=== PATIENT | female | born 1990 | race Caucasian/White ===

== ENCOUNTER 2017-02-11 15:13 | Emergency (ER) | payer SELFPAY ==
--- NOTE | 2017-02-11 17:14 | ER Document Report ---
ED Skin Rash/Insect Bite/Abscs - General Chief Complaint: Insect Bite Stated Complaint: BUG BITE Time Seen by Provider: 02/11/17 16:59 Mode of Arrival: Ambulatory Information source: Patient Notes: 26-year-old male female presents to ED for insect bite to the right middle and index finger last night. She states has been itching and swelling since then. TRAVEL OUTSIDE OF THE [place] IN LAST 30 DAYS: No - HPI Patient complains to provider of: Insect bite Onset: Yesterday Onset/Duration: Gradual Quality of pain: Pressure Severity: Moderate Pain Level: 3 Skin Character: Swelling, Other - Insect bite to the right middle and index finger Quality of rash: Itchy, Painful Identify cause: Yes Exacerbated by: Denies Relieved by: Denies Similar symptoms previously: Yes Recently seen / treated by doctor: No - Related Data Allergies/Adverse Reactions: strawberry [[place]] Allergy (Verified 02/11/17 15:27) Hives Past Medical History - General Information source: Patient - Social History Smoking Status: Former Smoker Cigarette use (# per day): No Chew tobacco use (# tins/day): No Smoking Education Provided: No Frequency of alcohol use: None Drug Abuse: None Occupation: mom Lives with: Family Family History: Arthritis, Malignancy. denies: CAD, COPD, CVA, DM, Hyperlipidemia, Hypertension, Thyroid Disfunction Patient has suicidal ideation: No Patient has homicidal ideation: No - Past Medical History Cardiac Medical History: Reports: None Pulmonary Medical History: Reports: None EENT Medical History: Reports: None Neurological Medical History: Reports: Hx Migraine Endocrine Medical History: Reports: None Renal/ Medical History: Reports: Hx Kidney Stones Malignancy Medical History: Reports: Hx Cervical Cancer - Atypical cells with a cone biopsy GI Medical History: Reports: None Musculoskeltal Medical History: Reports None Psychiatric Medical History: Reports: None Traumatic Medical History: Reports: None Infectious Medical History: Reports: None Past Surgical History: Reports: Hx Gynecologic Surgery - LEEP, cone biopsy, Hx Oral Surgery - wisdom teeth - Immunizations Immunizations up to date: Yes Hx Diphtheria, Pertussis, Tetanus Vaccination: Yes Hx Pneumococcal Vaccination: 06/28/09 Review of Systems - Review of Systems Constitutional: No symptoms reported EENT: No symptoms reported Cardiovascular: No symptoms reported Respiratory: No symptoms reported Gastrointestinal: No symptoms reported Genitourinary: No symptoms reported Female Genitourinary: No symptoms reported Musculoskeletal: No symptoms reported Skin: Other - Insect bite to index and middle finger with redness and swelling Hematologic/Lymphatic: No symptoms reported Neurological/Psychological: No symptoms reported Physical Exam - Vital signs Vitals: Temp Pulse Resp BP Pulse Ox 99.1 F 84 16 140/97 H 100 02/11/17 15:26 02/11/17 15:26 02/11/17 15:26 02/11/17 15:26 02/11/17 15:26 Interpretation: Normal - General General appearance: Appears well, Alert - HEENT Head: Normocephalic, Atraumatic Eyes: Normal Pupils: PERRL - Respiratory Respiratory status: No respiratory distress Chest status: Nontender Breath sounds: Normal Chest palpation: Normal - Cardiovascular Rhythm: Regular Heart sounds: Normal auscultation Murmur: No - Abdominal Inspection: Normal Distension: No distension Bowel sounds: Normal Tenderness: Nontender Organomegaly: No organomegaly - Back Back: Normal, Nontender - Extremities General upper extremity: Normal inspection, Nontender, Normal color, Normal ROM , Normal temperature General lower extremity: Normal inspection, Nontender, Normal color, Normal ROM , Normal temperature, Normal weight bearing. No: Juanpablo's sign - Neurological Neuro grossly intact: Yes Cognition: Normal Orientation: AAOx4 Oden Coma Scale Eye Opening: Spontaneous Sourav Coma Scale Verbal: Oriented Oden Coma Scale Motor: Obeys Commands Oden Coma Scale Total: 15 Speech: Normal Motor strength normal: LUE, RUE, LLE, RLE Sensory: Normal - Psychological Associated symptoms: Normal affect, Normal mood - Skin Skin Temperature: Warm Skin Moisture: Dry Skin Color: Normal Skin irregularity: Erythema Location of irregularity: Extremities - Right middle and index finger Irregularity with: Swelling, Tenderness Course - Vital Signs Vital signs: Temp Pulse Resp BP Pulse Ox 97.8 F 85 18 135/85 H 99 02/11/17 17:24 02/11/17 17:24 02/11/17 17:24 02/11/17 17:24 02/11/17 17:24 Discharge - Discharge Clinical Impression: Insect bite of finger with local reaction Qualifiers: Encounter type: initial encounter Qualified Code(s): S60.469A - Insect bite ( nonvenomous) of unspecified finger, initial encounter Condition: Stable Disposition: HOME, SELF-CARE Instructions: Family Physicians / Practices Additional Instructions: Insect Bites You have been bitten by an insect. These bites can cause two types of swelling: an initial swelling due to insect saliva or injected poison, and a late reaction due to your body's allergic reaction. This initial local reaction may be uncomfortable but is not dangerous. Often there's an itchy "hive" at the bite location. This is treated with antihistamines, cold compresses, and resting the affected body part. The later reaction often develops about the second day. The entire area becomes very swollen, red, itchy, and tender. This is an allergic reaction. Your body is attacking the leftover insect saliva or venom. This type of allergy is unpleasant, but not dangerous. We treat this swelling with cortisone -type medicine. Sometimes we use antibiotics if we're worried about infection. Antihistamines help with the itch. If you develop a fever, chills, a red streak, or swollen glands in the area of the bite, infection may be starting. Return at once. USE OF DIPHENHYDRAMINE: The use of diphenhydramine (Benadryl) has been recommended to control allergic symptoms. The 25 mg strength is available over- the-counter, as well as the elixir. This antihistamine is used for many symptoms. It's useful for itching, watering eyes and nose, allergic swelling, hives, and insect stings. The medication can be repeated four times daily. Age Elixir (12.5 mg/tsp) 25 mg pill 2-3 yr 1/2 tsp 4-8 yr 1 tsp 9-14 yr 2 tsp one tab adult 1-2 tabs Antihistamines may cause drowsiness, especially with the first dose. Do not operate machinery or drive while under the effects of the medication. Do not combine the medication with alcohol, or with any other medication without talking to your doctor. Ice Packs Apply ice packs frequently against the painful area. Many different schedules are recommended, such as "20 minutes on, 20 minutes off" or "one hour ice, two hours rest." If you need to work, you may need to go longer between ice treatments. You should plan to have the area ice packed AT LEAST one fourth of the time. The ice should be applied over the wrap, tape, or splint, or over a layer of cloth -- not directly against the skin. Some ice bags have a built-in cloth and can be put directly on the skin. FOLLOW-UP CARE: If you have been referred to a physician for follow-up care, call the physician s office for an appointment as you were instructed or within the next two days. If you experience worsening or a significant change in your symptoms, notify the physician immediately or return to the Emergency Department at any time for re-evaluation. Forms: Elevated Blood Pressure
[2017-02-11 17:25] VITALS: BP 135/85
== END 2017-02-11 17:25 | disposition home or self-care (01) ==
LOC: ER 15:13
DX: S60.462A Insect bite (nonvenomous) of right middle finger, initial encounter (principal); S60.460A Insect bite (nonvenomous) of right index finger, initial encounter; W57.XXXA Bitten or stung by nonvenomous insect and other nonvenomous arthropods, initial encounter; Z91.018 Allergy to other foods; Z87.891 Personal history of nicotine dependence
CPT/HCPCS: 99281

== ENCOUNTER 2017-02-13 14:23 | Emergency (ER) | payer SELFPAY ==
[2017-02-13 14:27] VITALS: BP 136/97
[2017-02-13] MEDS ORDERED: CEPHALEXIN 500 MG CAPSULE PO ONE (14:57)
[2017-02-13] MEDS ORDERED: SULFAMETHOXAZOLE/TRIMETHOPRIM 800-160 MG TABLET PO ONE (14:57)
--- NOTE | 2017-02-13 14:59 | ER Document Report ---
HPI - HPI Patient complains to provider of: skin rash Pain Level: 4 Context: Patient is a 26-year-old female who comes emergency department for chief complaint of spreading redness between her middle and ring fingers on her right hand, she states that 2 days ago she was bitten by an insect, she states it was initially just very itchy but now has started to become increasingly red and tender. She denies fever or chills, she is up-to-date on vaccinations, she denies any daily medications. - REPRODUCTIVE Reproductive: DENIES: : - DERM Skin Color: Normal Past Medical History - General Information source: Patient - Social History Smoking Status: Never Smoker Frequency of alcohol use: None Drug Abuse: None Lives with: Family Family History: Arthritis, Malignancy. denies: CAD, COPD, CVA, DM, Hyperlipidemia, Hypertension, Thyroid Disfunction Neurological Medical History: Reports: Hx Migraine Renal/ Medical History: Reports: Hx Kidney Stones. Denies: Hx Peritoneal Dialysis Malignancy Medical History: Reports: Hx Cervical Cancer - Atypical cells with a cone biopsy Past Surgical History: Reports: Hx Gynecologic Surgery - LEEP, cone biopsy, Hx Oral Surgery - wisdom teeth, Hx Orthopedic Surgery - wisdom - Immunizations Immunizations up to date: Yes Hx Diphtheria, Pertussis, Tetanus Vaccination: Yes Hx Pneumococcal Vaccination: 06/28/09 Vertical Provider Document - CONSTITUTIONAL General Appearance: WD/WN, No Apparent Distress - INFECTION CONTROL TRAVEL OUTSIDE OF THE [place] IN LAST 30 DAYS: No - HEENT HEENT: Atraumatic, Normal ENT Exam, Normocephalic - NECK Neck: Normal Inspection - RESPIRATORY Respiratory: Breath Sounds Normal, No Respiratory Distress O2 Sat by Pulse Oximetry: 100 - CARDIOVASCULAR Cardiovascular: Regular Rate, Regular Rhythm - GI/ABDOMEN Gastrointestinal: Abdomen Soft, Abdomen Non-Tender - MUSCULOSKELETAL/EXTREMETIES Musculoskeletal/Extremeties: Tender - There is erythema over the side of both the middle and ring fingers of the right hand, there is warmth to the area increased compared to the surrounding areas, no induration or fluctuance, no drainage. Area not noted to be tender with palpation. Range of motion of the fingers intact, normal sensation and capillary refill. - NEURO Level of Consciousness: Awake, Alert, Appropriate Course - Re-evaluation Re-evalutation: Examination indicates insect bite, but also consistent with spreading cellulitis. ROM intact, no induration or fluctuance, no prurulent drainage. Traced borders. Patient instructed to pay attention to the traced borders, instructed to return if she develops spreading redness, hardening of the area, fever, or any other indications of worsening symptoms. Patient states understanding and agreement. - Vital Signs Vital signs: Temp Pulse Resp BP Pulse Ox 98.6 F 81 14 136/97 H 100 02/13/17 14:24 02/13/17 14:24 02/13/17 14:24 02/13/17 14:24 02/13/17 14:24 Discharge - Discharge Clinical Impression: Insect bite Qualifiers: Encounter type: initial encounter Qualified Code(s): W57.XXXA - Bitten or stung by nonvenomous insect and other nonvenomous arthropods, initial encounter Condition: Stable Disposition: HOME, SELF-CARE Additional Instructions: Your examination indicates both localized inflammatory response as well as what appears to be developing cellulitis. Take the antibiotics as prescribed. Observe the area for any spreading, hardening, or other concerning symptoms. Return to emergency department for any concerning symptoms. I also recommend continuing the antihistamine treatments, also take Pepcid [id number] 20 mg once or twice a day. Prescriptions: Cephalexin Monohydrate [Keflex 500 mg Capsule] 500 mg PO QID #28 capsule Sulfamethoxazole/Trimethoprim [Bactrim Ds Tablet] 1 each PO BID #14 tablet
== END 2017-02-13 15:07 | disposition home or self-care (01) ==
LOC: ER 14:23
DX: S60.462A Insect bite (nonvenomous) of right middle finger, initial encounter (principal); S60.464A Insect bite (nonvenomous) of right ring finger, initial encounter; W57.XXXA Bitten or stung by nonvenomous insect and other nonvenomous arthropods, initial encounter
CPT/HCPCS: 99283

== ENCOUNTER 2017-03-24 00:52 | Emergency (ER) | payer SELFPAY ==
[2017-03-24] MEDS ORDERED: ACETAMINOPHEN 325 MG TABLET PO ONE (01:59)
[2017-03-24] MEDS ORDERED: KETOROLAC TROMETHAMINE INJ/PF 30 MG/1 ML SDV IV ONE (02:00)
--- NOTE | 2017-03-24 02:03 | ER Document Report ---
ED General - General Chief Complaint: Flu Symptoms Stated Complaint: FLU LIKE SYMPTOMS Time Seen by Provider: 03/24/17 01:54 Notes: Patient is a 26-year-old female presents with complaint of body aches, fevers, vomiting, dysuria or urinary frequency, sore throat, and coughing. She says symptoms have been ongoing for approximately 24 hours. She denies any sick contacts. She has not yet had a flu shot this year. She denies any neck stiffness. She says she does have some soreness and pain into her lower back bilaterally. No other complaints at this time. She did take Tylenol approximately 4 hours ago. Patient denies any abnormal vaginal discharge or bleeding. Only previous surgeries is cervical conization due to cervical dysplasia. She says that has not been done recently. No tick bites in the last 2 months. TRAVEL OUTSIDE OF THE [place] IN LAST 30 DAYS: No - Related Data Allergies/Adverse Reactions: strawberry [[place]] Allergy (Verified 02/11/17 15:27) Hives Home Medications: Current Home Medications No Home Medications 03/24/17 [History] Past Medical History - Social History Smoking Status: Unknown if Ever Smoked Frequency of alcohol use: None Drug Abuse: None Family History: Arthritis, Malignancy. denies: CAD, COPD, CVA, DM, Hyperlipidemia, Hypertension, Thyroid Disfunction Patient has suicidal ideation: No Patient has homicidal ideation: No Neurological Medical History: Reports: Hx Migraine Renal/ Medical History: Reports: Hx Kidney Stones. Denies: Hx Peritoneal Dialysis Malignancy Medical History: Reports: Hx Cervical Cancer - Atypical cells with a cone biopsy Past Surgical History: Reports: Hx Gynecologic Surgery - LEEP, cone biopsy, Hx Oral Surgery - wisdom teeth, Hx Orthopedic Surgery - wisdom - Immunizations Immunizations up to date: Yes Hx Diphtheria, Pertussis, Tetanus Vaccination: Yes Hx Pneumococcal Vaccination: 06/28/09 Review of Systems - Review of Systems Notes: My Normal Review Basic REVIEW OF SYSTEMS: CONSTITUTIONAL : Fever EENT: Throat CARDIOVASCULAR: Denies chest pain. RESPIRATORY: Cough GASTROINTESTINAL: Denies abdominal pain. Denies nausea, vomiting, or diarrhea. GENITOURINARY: Denies difficulty urinating, painful urination, burning, frequency, or blood in urine. MUSCULOSKELETAL: Low back pain SKIN: Denies rash or skin lesions. NEUROLOGICAL: Denies altered mental status or loss of consciousness. Denies headache. Denies weakness or paralysis or loss of use of either side. Denies problems with gait or speech. Denies sensory or motor loss. ALL OTHER SYSTEMS REVIEWED AND NEGATIVE. Physical Exam - Vital signs Vitals: Temp Pulse Resp BP Pulse Ox 102.4 F H 127 H 22 H 106/76 98 03/24/17 00:55 03/24/17 00:55 03/24/17 00:55 03/24/17 00:55 03/24/17 00:55 - Notes Notes: General Appearance: Well nourished, alert, cooperative, no acute distress, no obvious discomfort. Vitals: reviewed, See vital signs table. Head: no swelling or tenderness to the head Eyes: PERRL, EOMI, Conjuctiva clear Mouth: No decreasd moisture Throat: Erythema to the posterior pharynx. No tonsillar enlargement. No exudates. Neck: Supple, no neck tenderness, Lungs: No wheezing, No rales, No rhonci, No accessory muscle use, good air exchange bilaterally. Heart: Tachycardic rate, Regular rythm, No murmur, no rub Abdomen: Normal BS, soft, No rigidity, No abdominal tenderness, No guarding, no rebound, no abdominal masses, no organomegaly Back: Mild pain to palpation over bilateral costovertebral angles. Extremities: strength 5/5 in all extremities, good pulses in all extremities, no swelling or tenderness in the extremities, no edema. Skin: warm, dry, appropriate color, no rash Neuro: speech clear, oriented x 3, normal affect, responds appropriately to questions. Course - Re-evaluation Re-evalutation: 03/24/17 03:51 Patient's laboratory evaluation is really unremarkable. I really do suspect that she most likely has the flu even though her flu swabs are negative. Flu swab sensitivities not 100%. She says that she is feeling much improved however she still feels as if she has pain in her bones. She says that she aches all over and the pain is mainly feels as if it is in her bones itself. She denies a headache at this time. She has no neck stiffness. Clinically she looks much improved. Urinalysis negative. Chest x-ray does not show evidence of pneumonia. I will give the patient 1 more liter of fluids. Heart rate is currently in the 90s. We will then reassess her and see how she is doing. I will give her a small dose of morphine to help with her body aches. I did return to ask further questions. She denies any IV drug abuse. She denies any travel outside the country. 03/24/17 05:20 Patient is feeling improved. She looks well. Her initial vital signs did suggest Sirs criteria being that she had a fever and tachycardia. Those vital signs have completely normalized at this time. Her blood pressure has always remained stable. Her heart rate was in the 130s when she first arrived. Now that her fever is gone her heart rate is in the 90s. Her CBC shows that she does have a slight leukocytosis with neutrophilic predominance; however, she has no bandemia. Urinalysis negative. Chest x-ray is negative. She complains of sore throat and body aches which was cause concern for flu. Her flu swab is negative however I still suspect there is possibility she could have flu being that the flu swabs are not 100% sensitive. I informed her of this. I informed her that is still not 100% clear what initially caused a fever; however, she was have a very low threshold to return to the ER for reevaluation. Patient to return to the ER immediately if she has vomiting, recurrent fevers not responding to Tylenol Motrin, or she feels that she is worsening in any way. Regardless we will have her return to the ER or her primary care doctor in 2 days for reevaluation. Patient agrees with plan will be discharged home. Dictation of this chart was performed using voice recognition software; therefore, there may be some unintended grammatical errors. 03/24/17 05:22 - Vital Signs Vital signs: Temp Pulse Resp BP Pulse Ox 98.6 F 139 H 9 L 121/76 97 03/24/17 03:38 03/24/17 00:58 03/24/17 04:14 03/24/17 04:14 03/24/17 04:14 - Laboratory Result Diagrams: 03/24/17 02:14 03/24/17 02:14 Laboratory results interpreted by me: 03/24/17 03/24/17 02:14 02:14 WBC 12.2 H RDW 14.7 H Seg Neutrophils % 86.4 H Lymphocytes % 7.2 L Absolute Neutrophils 10.5 H Carbon Dioxide 21 L BUN 6 L Glucose 120 H AST 41 H Discharge - Discharge Clinical Impression: SIRS (systemic inflammatory response syndrome) Fever Qualifiers: Fever type: unspecified Qualified Code(s): R50.9 - Fever, unspecified Condition: Good Disposition: HOME, SELF-CARE Additional Instructions: Please drink clear liquids over the next 24 hours. Treat fevers with Tylenol and Motrin. Have a low threshold to return to the ER if you have worsening pain , recurrent fevers not responding to Tylenol, vomiting, or if you feel that you are worsening in any way. Please follow up with the ER or your doctor in 2 days for reevaluation. Forms: Return to Work
[2017-03-24] MEDS: NORMAL SALINE 1000 ML 1,000 ML IV PRN ×2 (02:14→02:18)
[2017-03-24] MEDS ORDERED: ONDANSETRON HCL INJ/PF 4 MG/2 ML SDV IV ONE (02:20)
[2017-03-24 02:27] LABS: ABSOLUTE LYMPHOCYTES (AUTO) 0.9 10^3/uL (0.5-4.7); ABSOLUTE MONOCYTES (AUTO) 0.7 10^3/uL (0.1-1.4); ABSOLUTE NEUT (AUTO) 10.5 10^3/uL (1.7-8.2); BASOPHILS % (AUTO) 0.3 % (0-2); EOSINOPHILS % (AUTO) 0.1 % (0-6); HEMATOCRIT 40.9 % (36.0-47.0); HEMOGLOBIN 14.1 g/dL (12.0-15.5); HGB HCT DIFFERENCE 1.4; LYMPHOCYTES % (AUTO) 7.2 % (13-45); MEAN CORPUSCULAR HEMOGLOBIN 28.9 pg (27.0-33.4); MEAN CORPUSCULAR HGB CONC 34.4 g/dL (32.0-36.0); MEAN CORPUSCULAR VOLUME 84 fl (80-97); RED BLOOD COUNT 4.87 10^6/uL (3.72-5.28); RED CELL DISTRIBUTION WIDTH 14.7 % (11.5-14.0); SEGMENTED NEUTROPHILS % (AUTO) 86.4 % (42-78); WHITE BLOOD COUNT 12.2 10^3/uL (4.0-10.5)
[2017-03-24 02:39] LABS: ALANINE AMINOTRANSFERASE 49 U/L (9-52); ALBUMIN 4.7 g/dL (3.5-5.0); ALKALINE PHOSPHATASE 100 U/L (38-126); ANION GAP 13 (5-19); ASPARTATE AMINO TRANSFERASE 41 U/L (14-36); BILIRUBIN,DIRECT 0.4 mg/dL (0.0-0.4); BILIRUBIN,TOTAL 0.7 mg/dL (0.2-1.3); BLOOD UREA NITROGEN 6 mg/dL (7-20); CARBON DIOXIDE 21 mmol/L (22-30); CHLORIDE 106 mmol/L (98-107); GLUCOSE 120 mg/dL (75-110); POTASSIUM 4.2 mmol/L (3.6-5.0); SODIUM 140.4 mmol/L (137-145)
[2017-03-24 03:43] LABS: APPEARANCE,URINE SLIGHTLY-CLOUDY; BILIRUBIN,URINE NEGATIVE (NEGATIVE); GLUCOSE, URINE NEGATIVE (NEGATIVE); KETONES,URINE NEGATIVE (NEGATIVE); LEUKOCYTE ESTERASE,URINE NEGATIVE (NEGATIVE); NITRITE,URINE NEGATIVE (NEGATIVE); PROTEIN,URINE NEGATIVE (NEGATIVE); URINE SPECIFIC GRAVITY 1.003; UROBILINOGEN,URINE NEGATIVE mg/dL (<2.0)
[2017-03-24] MEDS ORDERED: NORMAL SALINE 1000 ML 1,000 ML IV ONE (03:51)
[2017-03-24] MEDS ORDERED: MORPHINE SULFATE 10 MG/ML INJ IV ONE (03:51)
--- NOTE | 2017-03-24 03:52 | RADIOLOGY REPORT (SQ) ---
EXAM DESCRIPTION: CHEST PA/LAT COMPLETED DATE/TIME: 03/24/2017 3:39 am REASON FOR STUDY: fever COMPARISON: 05/10/2011. EXAM PARAMETERS: NUMBER OF VIEWS: two views TECHNIQUE: Digital Frontal and Lateral radiographic views of the chest acquired. RADIATION DOSE: NA LIMITATIONS: none FINDINGS: LUNGS AND PLEURA: No opacities, masses or pneumothorax. No pleural effusion. Azygos lobe. MEDIASTINUM AND HILAR STRUCTURES: No masses or contour abnormalities. HEART AND VASCULAR STRUCTURES: Heart normal size. No evidence for failure. BONES: No acute findings. HARDWARE: None in the chest. OTHER: No other significant finding. IMPRESSION: NO SIGNIFICANT RADIOGRAPHIC FINDING IN THE CHEST. TECHNICAL DOCUMENTATION: JOB ID: [id number] [employer]- All Rights Reserved
[2017-03-24 05:37] VITALS: BP 115/66
== END 2017-03-24 05:36 | disposition home or self-care (01) ==
LOC: ER 00:52
DX: R65.10 Systemic inflammatory response syndrome (SIRS) of non-infectious origin without acute organ dysfunction (principal); R50.9 Fever, unspecified; R05 Cough; M54.5 Low back pain; J02.9 Acute pharyngitis, unspecified; R00.0 Tachycardia, unspecified; M89.8X9 Other specified disorders of bone, unspecified site; D72.828 Other elevated white blood cell count; Z91.018 Allergy to other foods
CPT/HCPCS: 99284; 96361; 96374; 96375; 36415; 84703; 85025; 80053; 81001; 87804; 71020; J1885; J2270; J2405; J7030

== ENCOUNTER 2017-03-26 19:11 | Emergency (ER) | payer SELFPAY ==
[2017-03-26 19:47] VITALS: BP 121/93
== END 2017-03-26 22:20 | disposition left against medical advice (07) ==
LOC: ER 19:11
DX: Z53.21 Procedure and treatment not carried out due to patient leaving prior to being seen by health care provider (principal)

== ENCOUNTER 2017-08-07 13:44 | Emergency (ER) | payer SELFPAY ==
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
--- NOTE | 2017-08-07 15:31 | RADIOLOGY REPORT (SQ) ---
EXAM DESCRIPTION: U/S OB TRANSVAG W/DOPPLER COMPLETED DATE/TIME: 08/07/2017 3:20 pm REASON FOR STUDY: abd cramping in COMPARISON: None. TECHNIQUE: Transvaginal static and realtime grayscale images acquired of the pelvis. Additional micky cted spectral and color Doppler images recorded. All images stored on PACs. bHCG: Not drawn. LIMITATIONS: None. FINDINGS: UTERUS: No masses. Subchorionic bleed measuring 1.1 x 1.7 cm. GESTATIONAL SAC: Yes, corresponding to a 5 week 5 day gestation. YOLK SAC: Yes. POLE: No. RIGHT ADNEXA: Normal ovary with normal vascular flow. No adnexal free fluid. No adnexal masses. LEFT ADNEXA: Normal ovary with normal vascular flow. No adnexal free fluid. 1.6 cm cyst. FREE FLUID: None. OTHER: No other significant finding. IMPRESSION: POSSIBLE EARLY INTRAUTERINE . GESTATIONAL SAC WITH YOLK SAC BUT NO POLE. SUBCHORIONIC BLEED PRESENT. RECOMMEND FOLLOW-UP IN A FEW DAYS TO CONFIRM NORMAL DEVELOPMENT. Trimester of : First - 0 to 13 weeks. TECHNICAL DOCUMENTATION: JOB ID: [id number]- All Rights Reserved
[2017-08-07 16:01] LABS: APPEARANCE,URINE SLIGHTLY-CLOUDY; BILIRUBIN,URINE NEGATIVE (NEGATIVE); COLOR,URINE YELLOW; GLUCOSE, URINE NEGATIVE (NEGATIVE); KETONES,URINE NEGATIVE (NEGATIVE); LEUKOCYTE ESTERASE,URINE SMALL (NEGATIVE); NITRITE,URINE NEGATIVE (NEGATIVE); PROTEIN,URINE NEGATIVE (NEGATIVE); URINE SPECIFIC GRAVITY 1.006; UROBILINOGEN,URINE NEGATIVE mg/dL (<2.0)
[2017-08-07 17:38] LABS: ABSOLUTE LYMPHOCYTES (AUTO) 1.7 10^3/uL (0.5-4.7); ABSOLUTE MONOCYTES (AUTO) 0.3 10^3/uL (0.1-1.4); ABSOLUTE NEUT (AUTO) 6.4 10^3/uL (1.7-8.2); BASOPHILS % (AUTO) 0.6 % (0-2); EOSINOPHILS % (AUTO) 0.2 % (0-6); HEMATOCRIT 40.3 % (36.0-47.0); HEMOGLOBIN 13.5 g/dL (12.0-15.5); MEAN CORPUSCULAR HEMOGLOBIN 28.6 pg (27.0-33.4); MEAN CORPUSCULAR HGB CONC 33.6 g/dL (32.0-36.0); MEAN CORPUSCULAR VOLUME 85 fl (80-97); MONOCYTES % (AUTO) 3.9 % (3-13); PLATELET COUNT 209 10^3/uL (150-450); RED BLOOD COUNT 4.72 10^6/uL (3.72-5.28); RED CELL DISTRIBUTION WIDTH 14.7 % (11.5-14.0); SEGMENTED NEUTROPHILS % (AUTO) 75.3 % (42-78); TOTAL CELLS COUNTED % (AUTO) 100 %; WHITE BLOOD COUNT 8.5 10^3/uL (4.0-10.5)
[2017-08-07 18:00] LABS: ALANINE AMINOTRANSFERASE 24 U/L (9-52); ALBUMIN 4.3 g/dL (3.5-5.0); ALKALINE PHOSPHATASE 57 U/L (38-126); ANION GAP 11 (5-19); ASPARTATE AMINO TRANSFERASE 15 U/L (14-36); BILIRUBIN,DIRECT 0.1 mg/dL (0.0-0.4); BILIRUBIN,TOTAL 0.1 mg/dL (0.2-1.3); BLOOD UREA NITROGEN 7 mg/dL (7-20); CALCIUM 9.6 mg/dL (8.4-10.2); CARBON DIOXIDE 23 mmol/L (22-30); CHLORIDE 107 mmol/L (98-107); GLUCOSE 75 mg/dL (75-110); POTASSIUM 3.8 mmol/L (3.6-5.0); SODIUM 140.7 mmol/L (137-145); TOTAL PROTEIN 6.7 g/dL (6.3-8.2)
[2017-08-07 18:28] VITALS: BP 117/72
--- NOTE | 2017-08-07 18:53 | ER Document Report ---
ED General - General Mode of Arrival: Medic Information source: Patient TRAVEL OUTSIDE OF THE [place] IN LAST 30 DAYS: No <MARCO ANTONIO LANTIGUA - Last Filed: 08/07/17 18:57> - HPI Severity: Moderate <CRISTIHAN COOPER - Last Filed: 08/08/17 00:26> - General Chief Complaint: Abdominal Cramping Stated Complaint: ABDOMINAL PAIN Time Seen by Provider: 08/07/17 14:36 Notes: Patient is a 26 year old female who is approximately 6 weeks presents to the emergency department complaining of abdominal cramps and lower back pain onset prior to arrival. Patient has a history of previa and gestational diabetes. Patient is currently . (MARCO ANTONIO LANTIGUA) - Related Data Allergies/Adverse Reactions: strawberry [[place]] Allergy (Verified 08/07/17 13:44) Hives Past Medical History - General Information source: Patient - Social History Smoking Status: Former Smoker Chew tobacco use (# tins/day): No Frequency of alcohol use: None Drug Abuse: None Family History: Arthritis, Malignancy Patient has suicidal ideation: No Patient has homicidal ideation: No Neurological Medical History: Reports: Hx Migraine Renal/ Medical History: Reports: Hx Kidney Stones Malignancy Medical History: Reports: Hx Cervical Cancer - Atypical cells with a cone biopsy Past Surgical History: Reports: Hx Gynecologic Surgery - LEEP, cone biopsy, Hx Oral Surgery - wisdom teeth, Hx Orthopedic Surgery - wisdom - Immunizations Immunizations up to date: Yes Hx Diphtheria, Pertussis, Tetanus Vaccination: Yes Hx Pneumococcal Vaccination: 06/28/09 <MARCO ANTONIO LANTIGUA - Last Filed: 08/07/17 18:57> Review of Systems - Review of Systems Constitutional: No symptoms reported EENT: No symptoms reported Cardiovascular: No symptoms reported Respiratory: No symptoms reported Gastrointestinal: See HPI Genitourinary: No symptoms reported Female Genitourinary: No symptoms reported Musculoskeletal: See HPI, Back pain Skin: No symptoms reported Hematologic/Lymphatic: No symptoms reported Neurological/Psychological: No symptoms reported -: Yes All other systems reviewed and negative <MARCO ANTONIO LANTIGUA - Last Filed: 08/07/17 18:57> - Review of Systems Female Genitourinary: See HPI. denies: No symptoms reported <CRISTHIAN COOPER - Last Filed: 08/08/17 00:26> Physical Exam <MARCO ANTONIO LANTIGUA - Last Filed: 08/07/17 18:57> <CRISTHIAN COOPER - Last Filed: 08/08/17 00:26> - Vital signs Vitals: Temp Pulse Resp BP Pulse Ox 99.1 F 100 16 113/79 98 08/07/17 13:49 08/07/17 13:49 08/07/17 13:49 08/07/17 13:49 08/07/17 13:49 - Notes Notes: GENERAL: Alert, interacts well. No acute distress. HEAD: Normocephalic, atraumatic. EYES: Pupils equal, round, and reactive to light. Extraocular movements intact. ENT: Oral mucosa moist, tongue midline. NECK: Full range of motion. Supple. Trachea midline. LUNGS: Clear to auscultation bilaterally, no wheezes, rales, or rhonchi. No respiratory distress. HEART: Regular rate and rhythm. No murmurs, gallops, or rubs. ABDOMEN: Soft, suprapubic and LLQ tenderness to palpation. Non-distended. Bowel sounds present in all 4 quadrants. EXTREMITIES: Moves all 4 extremities spontaneously. NEUROLOGICAL: Alert and oriented x3. Normal speech. PSYCH: Normal affect, normal mood. SKIN: Warm, dry, normal turgor. No rashes or lesions noted. (MARCO ANTONIO LANTIGUA) Course - Laboratory Result Diagrams: 08/07/17 17:25 08/07/17 17:25 <MARCO ANTONIO LANTIGUA - Last Filed: 08/07/17 18:57> - Laboratory Result Diagrams: 08/07/17 17:25 08/07/17 17:25 <CRISTHIAN COOPER - Last Filed: 08/08/17 00:26> - Re-evaluation Re-evalutation: 08/07/17 19:01 CBC unremarkable, CMP unremarkable, quantitative hCG is 12,008, patient has small leukocyte esterase, 6 squamous epithelial cells, only 4 WBCs, no dysuria. Doubt infection suspect contamination. This will be sent for culture. Transvaginal ultrasound shows gestational sac and subchorionic hemorrhage. Discussed with patient that she is on complete vaginal rest until she follows up with OB. Discussed the somewhat increased risk of miscarriage. Patient is listed in the computer as being a positive, no indication for RhoGam. Patient will be discharged to home. Patient does have some nausea, she will be treated with Phenergan and Reglan. (CRISTHIAN COOPER) - Vital Signs Vital signs: Temp Pulse Resp BP Pulse Ox 98.5 F 83 18 117/72 98 08/07/17 18:24 08/07/17 18:24 08/07/17 18:24 08/07/17 18:24 08/07/17 18:24 - Laboratory Laboratory results interpreted by me: 08/07/17 08/07/17 08/07/17 15:22 17:25 17:25 RDW 14.7 H Total Bilirubin 0.1 L Beta HCG, Quant 47999.00 H Ur Leukocyte Esterase SMALL H Discharge <MARCO ANTONIO LANTIGUA - Last Filed: 08/07/17 18:57> <CRISTHIAN COOPER - Last Filed: 08/08/17 00:26> - Discharge Clinical Impression: Nausea and vomiting during prior to 22 weeks gestation Subchorionic hemorrhage in first trimester Qualifiers: Fetus number: single or unspecified fetus Qualified Code(s): O41.8X10 - Other specified disorders of amniotic fluid and membranes, first trimester, not applicable or unspecified Condition: Stable Disposition: HOME, SELF-CARE Additional Instructions: You have a small amount of bleeding around the baby. The skull subchorionic hemorrhage. It slightly increases your risk of miscarriage. Please do not have sex or put anything in your vagina until you follow-up with [facility]. You may notice a small amount of pink vaginal bleeding. Please return for large bright red vaginal bleeding or severely worsening pain. I have prescribed Phenergan and Reglan for your nausea. Do not take these at the same time. Take either one or the other. The ultrasound today showed a gestational sac but we did not see the baby. You should have the ultrasound repeated in 1-2 weeks to ensure that the is developing normally. Prescriptions: Promethazine HCl [Phenergan 25 mg Tablet] 25 mg PO Q4HP PRN #14 tablet PRN Reason: Metoclopramide HCl [Reglan 10 mg Tablet] 10 mg PO QIDP PRN #30 tablet PRN Reason: Referrals: ALESSANDRA DALEY MD [Primary Care Provider] - Follow up as needed Scribe Attestation: 08/08/17 00:26 I personally performed the services described in the documentation, reviewed and edited the documentation which was dictated to the scribe in my presence, and it accurately records my words and actions. (CRISTHIAN COOPER) Scribe Documentation - Scribe Written by Luther:: Luther Florez, 08/07/2017 19:00 acting as scribe for :: Bg <MARCO ANTONIO LANTIGUA - Last Filed: 08/07/17 18:57>
== END 2017-08-07 19:11 | disposition home or self-care (01) ==
LOC: ER 13:44
DX: O41.8X10 Other specified disorders of amniotic fluid and membranes, first trimester, not applicable or unspecified (principal); R10.9 Unspecified abdominal pain; O21.9 Vomiting of pregnancy, unspecified; Z3A.01 Less than 8 weeks gestation of pregnancy
CPT/HCPCS: 36415; 76817; 80053; 81001; 84702; 85025; 87086; 93976; 99284

== ENCOUNTER 2017-08-12 08:13 | Emergency (ER) | payer SELFPAY ==
[2017-08-12] MEDS ORDERED: NORMAL SALINE 1000 ML 1,000 ML IV ONE (08:36)
[2017-08-12] MEDS ORDERED: METOCLOPRAMIDE HCL INJ/PF 10 MG/2 ML SDV IV ONE (08:38)
[2017-08-12] MEDS ORDERED: DIPHENHYDRAMINE HCL 50 MG/ML VIAL IV ONE (08:53)
[2017-08-12 09:38] LABS: ABSOLUTE LYMPHOCYTES (AUTO) 0.9 10^3/uL (0.5-4.7); ABSOLUTE MONOCYTES (AUTO) 0.3 10^3/uL (0.1-1.4); ABSOLUTE NEUT (AUTO) 3.7 10^3/uL (1.7-8.2); BASOPHILS % (AUTO) 0.7 % (0-2); EOSINOPHILS % (AUTO) 0.3 % (0-6); HEMOGLOBIN 13.1 g/dL (12.0-15.5); LYMPHOCYTES % (AUTO) 18.8 % (13-45); MEAN CORPUSCULAR HEMOGLOBIN 28.8 pg (27.0-33.4); MEAN CORPUSCULAR HGB CONC 33.7 g/dL (32.0-36.0); MEAN CORPUSCULAR VOLUME 85 fl (80-97); MONOCYTES % (AUTO) 5.5 % (3-13); PLATELET COUNT 189 10^3/uL (150-450); RED BLOOD COUNT 4.56 10^6/uL (3.72-5.28); RED CELL DISTRIBUTION WIDTH 14.8 % (11.5-14.0); SEGMENTED NEUTROPHILS % (AUTO) 74.7 % (42-78); TOTAL CELLS COUNTED % (AUTO) 100 %
[2017-08-12 09:43] LABS: APPEARANCE,URINE SLIGHTLY-CLOUDY; BILIRUBIN,URINE NEGATIVE (NEGATIVE); COLOR,URINE YELLOW; GLUCOSE, URINE NEGATIVE (NEGATIVE); KETONES,URINE NEGATIVE (NEGATIVE); LEUKOCYTE ESTERASE,URINE NEGATIVE (NEGATIVE); NITRITE,URINE NEGATIVE (NEGATIVE); PROTEIN,URINE 30 mg/dL (NEGATIVE); URINE SPECIFIC GRAVITY 1.023
[2017-08-12 09:56] LABS: ALANINE AMINOTRANSFERASE 27 U/L (9-52); ALBUMIN 4.3 g/dL (3.5-5.0); ALKALINE PHOSPHATASE 57 U/L (38-126); ANION GAP 11 (5-19); ASPARTATE AMINO TRANSFERASE 19 U/L (14-36); BILIRUBIN,DIRECT 0.1 mg/dL (0.0-0.4); BILIRUBIN,TOTAL 0.2 mg/dL (0.2-1.3); BLOOD UREA NITROGEN 7 mg/dL (7-20); CALCIUM 9.5 mg/dL (8.4-10.2); CARBON DIOXIDE 22 mmol/L (22-30); CHLORIDE 107 mmol/L (98-107); GLUCOSE 96 mg/dL (75-110); LIPASE 94.6 U/L (23-300); POTASSIUM 4.1 mmol/L (3.6-5.0); SODIUM 140.3 mmol/L (137-145); TOTAL PROTEIN 6.6 g/dL (6.3-8.2)
--- NOTE | 2017-08-12 10:12 | ER Document Report ---
ED General - General Chief Complaint: Nausea/Vomiting Stated Complaint: VOMITING Time Seen by Provider: 08/12/17 08:35 TRAVEL OUTSIDE OF THE [place] IN LAST 30 DAYS: No - HPI Patient complains to provider of: Nausea vomiting diarrhea Notes: Patient coming in for evaluation nausea vomiting diarrhea. Patient currently is 7 weeks . Patient is a . Patient denies any abdominal pain or cramping denies any vaginal bleeding or vaginal discharge. Patient states she has tried Phenergan at home with no relief. Patient denies any other sick contacts except for being in the ER approximately 1 week ago. Patient resting comfortably upon my evaluation. - Related Data Allergies/Adverse Reactions: strawberry [[place]] Allergy (Verified 08/07/17 13:44) Hives Past Medical History - Social History Smoking Status: Unknown if Ever Smoked Family History: Arthritis, Malignancy Patient has suicidal ideation: No Patient has homicidal ideation: No Neurological Medical History: Reports: Hx Migraine Renal/ Medical History: Reports: Hx Kidney Stones. Denies: Hx Peritoneal Dialysis Malignancy Medical History: Reports: Hx Cervical Cancer - Atypical cells with a cone biopsy Past Surgical History: Reports: Hx Gynecologic Surgery - LEEP, cone biopsy, Hx Oral Surgery - wisdom teeth, Hx Orthopedic Surgery - wisdom - Immunizations Immunizations up to date: Yes Hx Diphtheria, Pertussis, Tetanus Vaccination: Yes Hx Pneumococcal Vaccination: 06/28/09 Review of Systems - Review of Systems Constitutional: No symptoms reported EENT: No symptoms reported Cardiovascular: No symptoms reported Respiratory: No symptoms reported Gastrointestinal: Diarrhea, Nausea, Vomiting Genitourinary: No symptoms reported Female Genitourinary: No symptoms reported Musculoskeletal: No symptoms reported Skin: No symptoms reported Hematologic/Lymphatic: No symptoms reported Neurological/Psychological: No symptoms reported -: Yes All other systems reviewed and negative Physical Exam - Vital signs Vitals: Temp Pulse Resp BP Pulse Ox 98.2 F 85 20 115/76 98 08/12/17 08:18 08/12/17 08:18 08/12/17 08:18 08/12/17 08:18 08/12/17 08:18 Interpretation: Normal - General General appearance: Appears well, Alert - HEENT Head: Normocephalic, Atraumatic Eyes: Normal Pupils: PERRL - Respiratory Respiratory status: No respiratory distress Chest status: Nontender Breath sounds: Normal Chest palpation: Normal - Cardiovascular Rhythm: Regular Heart sounds: Normal auscultation Murmur: No - Abdominal Inspection: Normal Distension: No distension Bowel sounds: Normal Tenderness: Nontender Organomegaly: No organomegaly - Back Back: Normal, Nontender - Extremities General upper extremity: Normal inspection, Nontender, Normal color, Normal ROM , Normal temperature General lower extremity: Normal inspection, Nontender, Normal color, Normal ROM , Normal temperature, Normal weight bearing. No: Juanpablo's sign - Neurological Neuro grossly intact: Yes Cognition: Normal Orientation: AAOx4 Sourav Coma Scale Eye Opening: Spontaneous Sourav Coma Scale Verbal: Oriented Sourav Coma Scale Motor: Obeys Commands Sourav Coma Scale Total: 15 Speech: Normal Motor strength normal: LUE, RUE, LLE, RLE Sensory: Normal - Psychological Associated symptoms: Normal affect, Normal mood - Skin Skin Temperature: Warm Skin Moisture: Dry Skin Color: Normal Course - Re-evaluation Re-evalutation: 08/12/17 11:10 The patient presents with n/v without signs of peritonitis or other life- threatening or serious etiology. The patient appears stable for discharge and has been instructed to return immediately if the symptoms worsen in any way, or in 8-12hr if not improved for re-evaluation. The patient has been instructed to return if the symptoms worsen or change in any way. - Vital Signs Vital signs: Temp Pulse Resp BP Pulse Ox 98.2 F 85 20 115/76 98 08/12/17 08:18 08/12/17 08:18 08/12/17 08:18 08/12/17 08:18 08/12/17 08:18 - Laboratory Result Diagrams: 08/12/17 09:10 08/12/17 09:10 Laboratory results interpreted by me: 08/12/17 08/12/17 08/12/17 09:10 09:10 09:10 RDW 14.8 H Beta HCG, Quant 00408.00 H Urine Protein 30 H Urine Urobilinogen 2.0 H Discharge - Discharge Clinical Impression: Nausea and vomiting during prior to 22 weeks gestation Condition: Good Disposition: HOME, SELF-CARE Instructions: Vomiting ([facility]), ([facility]) Additional Instructions: For nausea and vomiting during I recomment: Start with 10-12.5 mg of pyridoxine (vitamin B6) three times a day for 2 days. If not fully effective, Increase to 12.5 mg of pyridoxine four times a day for 2 days. If not fully effective, Increase to 25 mg of pyridoxine three times a day for 2 days. If not fully effective, Continue 25 mg pyridoxine 3 times a day, and add 12.5 mg of doxylamine before bedtime each day for 2 days. If not fully effective, Continue 25 mg pyridoxine 3 times a day, and take 12.5 mg of doxylamine twice a day. If not fully effective, Continue 25 mg pyridoxine 3 times a day, and take 12.5 mg of doxylamine three times a day. If not fully effective, Continue 25 mg pyridoxine 3 times a day, and 12.5 mg of doxylamine 3 times a day , while adding Emetrol, one to two tablespoons (15-30 cc) taken once or twice a day as needed. (Emetrol is an uyxp-gyc-iyuaigv mixture of sugar syrups and phosphoric acid [phosphorylated carbohydrate solution]) that acts by soothing the actual wall of the gastrointestinal tract). If not fully effective, Consult with your doctor. May also take the Reglan as prescribed. Follow-up with your primary care physician or CREDIT CHARGE AUTHORIZER return to the ER symptoms worsen. Prescriptions: Metoclopramide HCl [Reglan] 5 mg PO Q6 #30 tablet Prenat 115/Iron Fum/Folic/Dss [ 19 Tablet] 1 each PO DAILY #30 tablet Forms: Return to Work
[2017-08-12 11:19] VITALS: BP 110/65
== END 2017-08-12 11:19 | disposition home or self-care (01) ==
LOC: ER 08:13
DX: O21.9 Vomiting of pregnancy, unspecified (principal); O26.891 Other specified pregnancy related conditions, first trimester; R19.7 Diarrhea, unspecified; Z3A.01 Less than 8 weeks gestation of pregnancy
CPT/HCPCS: 99284; 96361; 96374; 96375; 36415; 84702; 83690; 85025; 80053; 81001; J1200; J2765; J7030

== ENCOUNTER → 2017-08-17 | Outpatient (CLI) | payer SELFPAY ==
--- NOTE | 2017-08-17 15:39 | RADIOLOGY REPORT (SQ) ---
EXAM DESCRIPTION: U/S [id number] TRNABD 1GES W/ODOP COMPLETED DATE/TIME: 08/17/2017 2:59 pm REASON FOR STUDY: ENCTR FOR SUPERVISION OF OTHER NORMAL , 1ST TRIMESTER (Z34.81) Z34.81 EN COUNTER FOR SUPRVSN OF NORMAL , FIRST TRIM COMPARISON: None. TECHNIQUE: Transabdominal static and realtime grayscale images acquired of the pelvis. Additional se lected spectral and color Doppler images recorded. All images stored on PACs. bHCG: Not applicable. LIMITATIONS: None. FINDINGS: FETUS: Living intrauterine . EGA: 6 weeks 4 days TARA: 04/08/2018 FHR: 131 beats per minute. SUBCHORIONIC BLEED: No no SIZE OF BLEED: Not applicable. UTERUS: No masses. No anomalies. CERVICAL LENGTH: 3.1 cm Closed. RIGHT ADNEXA: Normal ovary with normal vascular flow. No adnexal free fluid. 2.4 cm corpus luteum. It LEFT ADNEXA: Ovary not identified. No adnexal free fluid. No adnexal masses. FREE FLUID: None. OTHER: No other significant finding. IMPRESSION: LIVING INTRAUTERINE . EGA 6 weeks 4 days Trimester of : First - 0 to 13 weeks. TECHNICAL DOCUMENTATION: JOB ID: [id number] [employer]- All Rights Reserved
== END ==
LOC: RAD 12:50
PROVIDERS: ATTEND Nurse Practitioner Women's Health
DX: Z34.81 Encounter for supervision of other normal pregnancy, first trimester (principal)
CPT/HCPCS: 76801

== ENCOUNTER 2017-08-23 13:45 | Emergency (ER) | payer MEDICAID ==
[2017-08-23] MEDS ORDERED: ACETAMINOPHEN 325 MG TABLET PO ONE (14:27)
--- NOTE | 2017-08-23 14:31 | ER Document Report ---
HPI - HPI Patient complains to provider of: pelvic pain Onset: Yesterday Onset/Duration: Gradual Quality of pain: Cramping Pain Level: 3 Context: Patient is currently 7 weeks and complains of lower pelvic pain that started yesterday. Patient does report nausea and vomiting 6 episodes today. Patient does acknowledge that she has had vomiting throughout the thus far. Patient additionally complains of vaginal discharge. Patient is followed by the health department and has had an ultrasound although has not had any kind of STD testing. Patient denies any urinary symptoms. Associated Symptoms: Other - Pelvic pain, vaginal discharge. denies: Fever Exacerbated by: Denies Relieved by: Denies Similar symptoms previously: No Recently seen / treated by doctor: No - ROS ROS below otherwise negative: Yes Systems Reviewed and Negative: Yes All other systems reviewed and negative - CONSTITUTIONAL Constitutional: DENIES: Fever, Chills - CARDIOVASCULAR Cardiovascular: DENIES: Chest pain - RESPIRATORY Respiratory: DENIES: Trouble Breathing, Coughing - GASTROINTESTINAL Gastrointestinal: REPORTS: Abdominal Pain, Nausea, Patient vomiting. DENIES: Diarrhea - URINARY Urinary: DENIES: Dysuria - REPRODUCTIVE Reproductive: DENIES: : - MUSCULOSKELETAL Musculoskeletal: DENIES: Extremity pain, Back Pain - DERM Skin Color: Normal, [place] Skin Problems: None Past Medical History - General Information source: Patient - Social History Smoking Status: Former Smoker Chew tobacco use (# tins/day): No Frequency of alcohol use: None Drug Abuse: None Occupation: none Lives with: Family Family History: Arthritis, Malignancy Patient has suicidal ideation: No Patient has homicidal ideation: No Neurological Medical History: Reports: Hx Migraine Renal/ Medical History: Reports: Hx Kidney Stones. Denies: Hx Peritoneal Dialysis Malignancy Medical History: Reports: Hx Cervical Cancer - Atypical cells with a cone biopsy Past Surgical History: Reports: Hx Gynecologic Surgery - LEEP, cone biopsy, Hx Oral Surgery - wisdom teeth, Hx Orthopedic Surgery - wisdom - Immunizations Immunizations up to date: Yes Hx Diphtheria, Pertussis, Tetanus Vaccination: Yes Hx Pneumococcal Vaccination: 06/28/09 Vertical Provider Document - CONSTITUTIONAL Agree With Documented VS: Yes Exam Limitations: No Limitations General Appearance: WD/WN, No Apparent Distress - INFECTION CONTROL TRAVEL OUTSIDE OF THE [place] IN LAST 30 DAYS: No - HEENT HEENT: Atraumatic, Normocephalic - NECK Neck: Normal Inspection, Supple - RESPIRATORY Respiratory: Breath Sounds Normal, No Respiratory Distress O2 Sat by Pulse Oximetry: 100 - CARDIOVASCULAR Cardiovascular: Regular Rate, Regular Rhythm, No Murmur - GI/ABDOMEN Gastrointestinal: Abdomen Soft, Abdomen Tender - Suprapubic, left lower pelvic tenderness, No Organomegaly, Normal Bowel Sounds - REPRODUCTIVE Female Genitalia: Adnexal Pain-Right, Adnexal Pain-Left Notes: small amount of white vaginal discharge - BACK Back: Normal Inspection. negative: CVA Tenderness-Right, CVA Tenderness-Left - MUSCULOSKELETAL/EXTREMETIES Musculoskeletal/Extremeties: ALEKSANDAR WATTS - NEURO Level of Consciousness: Awake, Alert, Appropriate Motor/Sensory: No Motor Deficit - DERM Integumentary: Warm, Dry, No Rash Course - Re-evaluation Re-evalutation: 08/23/17 Patient presents with abdominal pain without signs of peritonitis or other life- threatening or serious etiology. Patient appears stable for discharge and has been instructed to return immediately if the symptoms worsen in any way, or in 8 -12 hours if not improved for reevaluation. The patient has been instructed to return if the symptoms worsen or change in any way. - Vital Signs Vital signs: Temp Pulse Resp BP Pulse Ox 99.1 F 91 16 130/74 H 100 08/23/17 13:49 08/23/17 13:49 08/23/17 13:49 08/23/17 13:49 08/23/17 13:49 - Laboratory Laboratory results interpreted by me: 08/23/17 17:50 Labs- Entire Visit 08/23/17 08/23/17 08/23/17 14:15 15:09 15:09 Urine Color YELLOW Urine Appearance SLIGHTLY-CLOUDY Urine pH 7.0 Ur Specific [place] 1.014 Urine Protein NEGATIVE Urine Glucose (UA) NEGATIVE Urine Ketones NEGATIVE Urine Blood NEGATIVE Urine Nitrite NEGATIVE Urine Bilirubin NEGATIVE Urine Urobilinogen NEGATIVE Ur Leukocyte Esterase NEGATIVE Urine WBC (Auto) 0 Urine RBC (Auto) 1 Urine Bacteria (Auto) TRACE Squamous Epi Cells Auto 2 Urine Mucus (Auto) MOD Urine Ascorbic Acid 40 H Epi Cells (Wet Prep) 3+ EPITHELIALS SEEN Bacteria (Wet Prep) 3+ BACTERIA SEEN Trichomonas (Wet Prep) NO TRICHOMONAS SEEN Vaginal WBC 4+ WBCS SEEN Vaginal RBC NO RBCS SEEN Vaginal Yeast NO YEAST SEEN Chlamydia DNA (PCR) NOT DETECTED N.gonorrhoeae DNA (PCR) NOT DETECTED - Diagnostic Test Radiology reviewed: Reports reviewed Discharge - Discharge Clinical Impression: Bacterial vaginosis Pelvic pain affecting Qualifiers: Trimester: first trimester Qualified Code(s): O26.891 - Other specified related conditions, first trimester Subchorionic bleed Qualifiers: Fetus number: single or unspecified fetus Trimester: first trimester Qualified Code(s): O41.8X10 - Other specified disorders of amniotic fluid and membranes, first trimester, not applicable or unspecified Condition: Stable Disposition: HOME, SELF-CARE Instructions: Acetaminophen, Metronidazole ([facility]), Pelvic Pain in ([facility] ), Vaginosis, Bacterial ([facility]) Additional Instructions: Return immediately for any new or worsening symptoms Followup with your primary care provider, call tomorrow to make a followup appointment Follow-up with your [facility] health provider for recheck Prescriptions: Metronidazole [Flagyl 500 mg Tablet] 500 mg PO BID #14 tablet [facility] [NO LOCAL MD] - Follow up as needed ALESSANDRA DALEY MD [Primary Care Provider] - Follow up tomorrow
[2017-08-23 14:43] LABS: APPEARANCE,URINE SLIGHTLY-CLOUDY; BILIRUBIN,URINE NEGATIVE (NEGATIVE); COLOR,URINE YELLOW; GLUCOSE, URINE NEGATIVE (NEGATIVE); KETONES,URINE NEGATIVE (NEGATIVE); LEUKOCYTE ESTERASE,URINE NEGATIVE (NEGATIVE); NITRITE,URINE NEGATIVE (NEGATIVE); PROTEIN,URINE NEGATIVE (NEGATIVE); URINE SPECIFIC GRAVITY 1.014; UROBILINOGEN,URINE NEGATIVE mg/dL (<2.0)
[2017-08-23 15:17] LABS: BACTERIA (WET MOUNT) 3+ BACTERIA SEEN; EPITHELIALS (WET MOUNT) 3+ EPITHELIALS SEEN; RBCS (WET MOUNT) NO RBCS SEEN; T.VAGINALIS (WET MOUNT) NO TRICHOMONAS SEEN; WBCS (WET MOUNT) 4+ WBCS SEEN; YEAST (WET MOUNT) NO YEAST SEEN
[2017-08-23 16:49] LABS: CHLAM PCR NOT DETECTED (NOT DETECT); GON PCR NOT DETECTED (NOT DETECT)
--- NOTE | 2017-08-23 17:44 | RADIOLOGY REPORT (SQ) ---
EXAM DESCRIPTION: U/S OB TRANSVAGINAL W/O DOP COMPLETED DATE/TIME: 08/23/2017 5:32 pm REASON FOR STUDY: LLQ pain COMPARISON: 08/17/2017 TECHNIQUE: Transvaginal static and realtime grayscale images acquired of the pelvis. Additional micky cted spectral and color Doppler images recorded. All images stored on PACs. bHCG: Not applicable. LIMITATIONS: None. FINDINGS: FETUS: Living intrauterine . EGA: 7 weeks 1 day TARA: 04/10/2018 FHR: 155 beats per minute. SUBCHORIONIC BLEED: Yes. SIZE OF BLEED: 1.2 x 1.1 cm UTERUS: No masses. No anomalies. CERVICAL LENGTH: 4.7 cm Closed. RIGHT ADNEXA: Normal ovary with normal vascular flow. No adnexal free fluid. Simple cyst(s) measuring 2.3 cm LEFT ADNEXA: Ovary not identified. No adnexal free fluid. No adnexal masses. FREE FLUID: None. OTHER: No other significant finding. IMPRESSION: LIVING INTRAUTERINE with small subchorionic hemorrhage. EGA 7 weeks 1 day Trimester of : First - 0 to 13 weeks. TECHNICAL DOCUMENTATION: JOB ID: [id number] [employer]- All Rights Reserved Reading location - IP/workstation name: [email or web address]
[2017-08-23 18:21] VITALS: BP 121/99
== END 2017-08-23 18:20 | disposition home or self-care (01) ==
LOC: ER 13:45
DX: O23.591 Infection of other part of genital tract in pregnancy, first trimester (principal); B96.89 Other specified bacterial agents as the cause of diseases classified elsewhere; O21.9 Vomiting of pregnancy, unspecified; O20.8 Other hemorrhage in early pregnancy; O26.891 Other specified pregnancy related conditions, first trimester; R10.2 Pelvic and perineal pain; Z3A.01 Less than 8 weeks gestation of pregnancy
CPT/HCPCS: 99284; 87210; 81001; 87491; 87591; 76817; J3490

== ENCOUNTER 2018-04-03 17:41 | Inpatient (IN) | payer MEDICAID ==
[2018-04-03] MEDS ORDERED: OXYTOCIN/NORMAL SALINE 20 UNIT/1,000 ML RTUINJ IV PRN (18:16)
[2018-04-03] MEDS ORDERED: RINGERS SOLUTION,LACTATED 1,000 ML IV PRN (18:16)
[2018-04-03] MEDS ORDERED: RINGERS SOLUTION,LACTATED 300 ML IV ONE (18:16)
[2018-04-03 19:05] LABS: ABSOLUTE LYMPHOCYTES (AUTO) 1.2 10^3/uL (0.5-4.7); ABSOLUTE MONOCYTES (AUTO) 0.5 10^3/uL (0.1-1.4); ABSOLUTE NEUT (AUTO) 4.7 10^3/uL (1.7-8.2); BASOPHILS % (AUTO) 0.2 % (0-2); EOSINOPHILS % (AUTO) 0.5 % (0-6); HEMOGLOBIN 10.1 g/dL (12.0-15.5); LYMPHOCYTES % (AUTO) 18.3 % (13-45); MEAN CORPUSCULAR HEMOGLOBIN 26.8 pg (27.0-33.4); MEAN CORPUSCULAR HGB CONC 33.7 g/dL (32.0-36.0); MEAN CORPUSCULAR VOLUME 80 fl (80-97); MONOCYTES % (AUTO) 8.3 % (3-13); PLATELET COUNT 120 10^3/uL (150-450); RED BLOOD COUNT 3.77 10^6/uL (3.72-5.28); RED CELL DISTRIBUTION WIDTH 16.2 % (11.5-14.0); SEGMENTED NEUTROPHILS % (AUTO) 72.7 % (42-78); TOTAL CELLS COUNTED % (AUTO) 100 %; WHITE BLOOD COUNT 6.5 10^3/uL (4.0-10.5)
[2018-04-03] MEDS ORDERED: MISOPROSTOL 0.1 MG TABLET ONE (19:41)
[2018-04-03] MEDS ORDERED: PENICILLIN G-K 5 MILLION UNIT VIAL ONE ×2 (19:41→23:56)
[2018-04-03] MEDS ORDERED: PENICILLIN G POTASSIUM 5,000,000 UNIT in DEXTROSE 5%-WATER 100 ML IV ONE (19:45)
[2018-04-03] MEDS ORDERED: MISOPROSTOL 0.1 MG TABLET PO ONE (20:00)
[2018-04-03] MEDS ORDERED: MISOPROSTOL 0.1 MG TABLET PV ONE (20:00)
[2018-04-03 20:37] LABS: APPEARANCE,URINE CLOUDY; BILIRUBIN,URINE NEGATIVE (NEGATIVE); COLOR,URINE YELLOW; GLUCOSE, URINE 150 mg/dL (NEGATIVE); KETONES,URINE NEGATIVE (NEGATIVE); LEUKOCYTE ESTERASE,URINE LARGE (NEGATIVE); NITRITE,URINE NEGATIVE (NEGATIVE); PROTEIN,URINE 30 mg/dL (NEGATIVE); URINE SPECIFIC GRAVITY 1.017; UROBILINOGEN,URINE NEGATIVE mg/dL (<2.0)
[2018-04-03] MEDS ORDERED: MAG HYDROX/AL HYDROX/SIMETH SUSP 30 ML UDCUP ONE (20:42)
[2018-04-03] MEDS ORDERED: MAG HYDROX/AL HYDROX/SIMETH SUSP 30 ML UDCUP PO ONE (20:50)
[2018-04-03 20:54] LABS: URINE AMPHETAMINES SCREEN NEGATIVE; URINE BARBITURATES SCREEN NEGATIVE; URINE BENZODIAZEPINES SCREEN NEGATIVE; URINE COCAINE SCREEN NEGATIVE; URINE MARIJUANA (THC) SCREEN NEGATIVE; URINE METHADONE SCREEN NEGATIVE; URINE PHENCYCLIDINE SCREEN NEGATIVE
[2018-04-03] MEDS ORDERED: MISOPROSTOL 0.1 MG TABLET PO SCH (22:00)
[2018-04-04] MEDS ORDERED: MISOPROSTOL 0.2 MG TABLET ONE (00:02)
[2018-04-04] MEDS ORDERED: OXYTOCIN/NORMAL SALINE 20 UNIT/1,000 ML RTUINJ ONE (00:02)
[2018-04-04] MEDS ORDERED: LIDOCAINE 1% INJ-PF (10 MG/ML) 30 ML SDV ONE (00:02)
[2018-04-04] MEDS: PENICILLIN G POTASSIUM 2,500,000 UNIT in DEXTROSE 5%-WATER 50 ML IV SCH ×3 (00:11→09:51)
[2018-04-04] MEDS ORDERED: EPHEDRINE SULFATE INJ 50 MG/1 ML AMPULE ONE (00:24)
[2018-04-04] MEDS ORDERED: PHENYLEPHRINE HCL INJ/PF 10 MG/1 ML SDV ONE (00:24)
[2018-04-04] MEDS ORDERED: FENTANYL CITRATE INJ/PF 100 MCG/2 ML AMPUL ONE (00:24)
[2018-04-04] MEDS ORDERED: BUPIVACAINE HCL 0.5 % INJ/PF 30 ML SDV ONE (00:25)
[2018-04-04] MEDS ORDERED: FENTANYL/BUPIVACAINE/NS/PF 300 MCG/150 ML RTUINJ EPI ONE (00:52)
[2018-04-04] MEDS ORDERED: ACETAMINOPHEN 325 MG TABLET ONE (01:53)
[2018-04-04] MEDS ORDERED: ACETAMINOPHEN 325 MG TABLET PO ONE (02:10)
[2018-04-04] MEDS ORDERED: PENICILLIN G-K 5 MILLION UNIT VIAL ONE (03:53)
[2018-04-04] MEDS ORDERED: PROMETHAZINE HCL INJ 25 MG/1 ML VIAL IV PRN ×2 (06:31→09:00)
[2018-04-04] MEDS ORDERED: PROMETHAZINE HCL 25 MG SUPP.RECT PR PRN (06:31)
[2018-04-04] MEDS ORDERED: DIBUCAINE 1% OINTMENT 28 GM TP PRN (06:31)
[2018-04-04] MEDS ORDERED: ZOLPIDEM TARTRATE 5 MG TABLET PO PRN (06:31)
[2018-04-04] MEDS ORDERED: OXYTOCIN/NORMAL SALINE 20 UNIT/1,000 ML RTUINJ IV PRN (06:31)
[2018-04-04] MEDS ORDERED: PROMETHAZINE HCL 25 MG TABLET PO PRN (06:31)
[2018-04-04] MEDS ORDERED: NA PHOS,M-B/NA PHOS,DI-BA (ADULT) 133 ML ENEMA PR PRN (06:31)
[2018-04-04] MEDS ORDERED: MEASLES,MUMPS&RUBELLA VACC/PF 0.5 ML VIAL SUBCUT PRN ×2 (06:31→09:00)
[2018-04-04] MEDS ORDERED: MAGNESIUM HYDROXIDE SUSP 30 ML UDCUP PO PRN ×2 (06:31→09:00)
[2018-04-04] MEDS ORDERED: GLYCERIN/WITCH HAZEL LEAF 1 EACH MED..PAD TP PRN (06:31)
[2018-04-04] MEDS ORDERED: DIPHENHYDRAMINE HCL 25 MG CAPSULE PO PRN (06:31)
[2018-04-04] MEDS ORDERED: DIPH/PERTUSS(ACELL)/TETANUS VAC/PF 0.5 ML SYR (>=10YO) IM PRN ×2 (06:31→09:00)
[2018-04-04] MEDS ORDERED: ACETAMINOPHEN 650 MG SUPP.RECT PR PRN (06:31)
[2018-04-04] MEDS ORDERED: BENZOCAINE/MENTHOL AEROSOL SPRAY 56 ML TOP PRN (06:31)
[2018-04-04] MEDS ORDERED: PSEUDOEPHEDRINE HCL 30 MG TABLET PO PRN (06:31)
[2018-04-04] MEDS ORDERED: IBUPROFEN 800 MG TABLET PO ONE (07:00)
[2018-04-04] MEDS: FERROUS SULFATE 325 MG TABLET PO SCH ×2 (10:52→17:47)
[2018-04-04] MEDS: PRENATAL VITAMIN W DHA CAPSULE PO SCH (10:52)
[2018-04-04] MEDS: SENNOSIDES/DOCUSATE 8.6-50 MG 1 EACH TABLET PO SCH (10:52)
[2018-04-04] MEDS: FAMOTIDINE 20 MG TABLET PO SCH ×2 (10:52→22:23)
[2018-04-04] MEDS: DOCUSATE SODIUM 100 MG CAPSULE PO SCH ×2 (10:52→17:47)
[2018-04-04] MEDS: IBUPROFEN 800 MG TABLET PO SCH ×2 (13:30→22:23)
[2018-04-04] MEDS: ACETAMINOPHEN WITH CODEINE #3 TABLET PO PRN ×2 (15:07→20:18)
[2018-04-05] MEDS: IBUPROFEN 800 MG TABLET PO SCH ×3 (05:53→21:05)
[2018-04-05 09:14] LABS: HEMATOCRIT 30.4 % (36.0-47.0); HEMOGLOBIN 10.1 g/dL (12.0-15.5); MEAN CORPUSCULAR HEMOGLOBIN 26.7 pg (27.0-33.4); MEAN CORPUSCULAR VOLUME 81 fl (80-97); RED BLOOD COUNT 3.76 10^6/uL (3.72-5.28); RED CELL DISTRIBUTION WIDTH 16.7 % (11.5-14.0); WHITE BLOOD COUNT 5.9 10^3/uL (4.0-10.5)
[2018-04-05] MEDS: FAMOTIDINE 20 MG TABLET PO SCH ×2 (09:50→21:04)
[2018-04-05] MEDS: PRENATAL VITAMIN W DHA CAPSULE PO SCH (09:50)
[2018-04-05] MEDS: DOCUSATE SODIUM 100 MG CAPSULE PO SCH ×2 (09:50→17:36)
[2018-04-05] MEDS: SENNOSIDES/DOCUSATE 8.6-50 MG 1 EACH TABLET PO SCH (09:50)
[2018-04-05] MEDS: FERROUS SULFATE 325 MG TABLET PO SCH ×2 (09:50→17:36)
[2018-04-05] MEDS: ACETAMINOPHEN WITH CODEINE #3 TABLET PO PRN ×2 (09:55→14:29)
[2018-04-05 10:09] LABS: PLATELET COUNT 97 10^3/uL (150-450)
--- NOTE | 2018-04-05 13:22 | PDOC PROGRESS REPORT ---
Subjective-OB Progress Note for:: 04/05/18 Subjective: reports bleeding slowing, pain controlled with current meds. no needs expressed Physical Exam (OB) Vital Signs: Temp Pulse Resp BP Pulse Ox 97.9 F 88 16 132/90 H 98 04/05/18 10:05 04/05/18 10:05 04/05/18 10:05 04/05/18 10:05 04/05/18 10:05 Intake & Output 04/04/18 04/05/18 04/06/18 06:59 06:59 06:59 Intake Total 50 50 Balance 50 50 Weight 86.6 kg - PIH/Pre-Eclampsia Visual Changes: No - Abdomen Description: Soft Hernia Present: No Fundal Description: Firm, Midline Fundal Height: u/u - u/2 - Abdominal Distension: No distension Tenderness: Nontender - Extremities Lower extremities: Juanpablo's sign - neg Calf: Normal, Nontender Objective-Diagnostic Laboratory: 04/05/18 07:58 04/05/18 07:58 WBC 5.9 RBC 3.76 Hgb 10.1 L Hct 30.4 L MCV 81 MCH 26.7 L MCHC 33.0 RDW 16.7 H Plt Count 97 L Assessment and Plan(PN) - Assessment and Plan (1) Normal vaginal delivery Is this a current diagnosis for this admission?: Yes - Time Spent with Patient Time with patient: Less than 15 minutes - Disposition Anticipated Discharge: Home Within: within 24 hours
[2018-04-05] MEDS ORDERED: OXYCODONE-ACETAMINOPHEN 5-325 MG TABLET PO PRN (16:18)
[2018-04-05] MEDS: OXYCODONE-ACETAMINOPHEN 5-325 MG TABLET PO PRN ×2 (16:31→20:40)
[2018-04-06] MEDS: OXYCODONE-ACETAMINOPHEN 5-325 MG TABLET PO PRN (00:56)
[2018-04-06] MEDS: IBUPROFEN 800 MG TABLET PO SCH (05:59)
[2018-04-06] MEDS: FAMOTIDINE 20 MG TABLET PO SCH (10:25)
[2018-04-06] MEDS: PRENATAL VITAMIN W DHA CAPSULE PO SCH (10:25)
[2018-04-06] MEDS: DOCUSATE SODIUM 100 MG CAPSULE PO SCH (10:25)
[2018-04-06] MEDS: FERROUS SULFATE 325 MG TABLET PO SCH (10:25)
[2018-04-06] MEDS: SENNOSIDES/DOCUSATE 8.6-50 MG 1 EACH TABLET PO SCH (10:25)
--- NOTE | 2018-04-06 11:30 | PDOC DISCHARGE SUMMARY ---
Final Diagnosis Discharge Date: 04/06/18 - Final Diagnosis (1) Normal vaginal delivery Is this a current diagnosis for this admission?: Yes Discharge Data - Discharge Medication Home Medications: Metoclopramide HCl [Reglan] 5 mg PO Q6 #30 tablet 08/12/17 Prenat 115/Iron Fum/Folic/Dss [ 19 Tablet] 1 each PO DAILY #30 tablet Insulin Glargine,Hum.rec.anlog [Lantus] 8 units SUBCUT DAILY 04/03/18 Metformin HCl [Metformin HCl ER] 1 tab PO DAILY 04/03/18 Reason(s) for Admission: Induction of Labor Procedures: NST Intrapartum Procedure(s): Spontaneous Vaginal Delivery - Diagnosis Test Laboratory: Temp Pulse Resp BP Pulse Ox 97.9 F 87 18 124/87 H 98 04/06/18 08:08 04/06/18 08:08 04/06/18 08:08 04/06/18 08:08 04/06/18 08:08 04/03/18 04/03/18 04/05/18 17:55 18:52 07:58 RBC 3.77 3.76 Hgb 10.1 L 10.1 L Hct 30.0 L 30.4 L Urine Opiates Screen NEGATIVE - Discharge information/Instructions Discharge Activity: Activity As Tolerated, Balance Activity w/Rest, No tub bath Discharge Diet: Regular Disposition: HOME, SELF-CARE Follow [facility] with: [facility] in: 3, Weeks
[2018-04-06 13:52] VITALS: BP 132/90
--- NOTE | 2018-04-13 11:54 | Delivery Summary ---
Del Sum A-C Datetime Report Generated by CPN: 04/13/2018 11:54 DELIVERY PERSONNEL DELIVERY PERSONNEL: [id number] Delivery Doctor:: Mavis Stephens MD Labor and Delivery Nurse:: Lory Gallagher RNassistant chief of police Nurse:: Amada Tolentino RN Drafting Detailer:: Alexandria Aldana RN Surveyor Mine/INDUSTRIAL PSYCHOLOGY PROFESSOR: Consuelo Garcia, ST MATERNAL INFORMATION Delivery Anesthesia: Epidural Medications After Delivery: Pitocin Drip 20 Units/1000ml NSS Estimated Blood Loss (ml): 200 Maternal Complications: None LABOR SUMMARY EDC: 04/06/2018 00:00 No. Babies in Womb: 1 Attempted: No Labor Anesthesia: Epidural LABOR INFORMATION Reason for Induction: Maternal Diabetes Onset of Labor: 04/04/2018 00:09 Complete Dilatation: 04/04/2018 06:06 Cervical Ripening Agents: Cytotec @ Cervical Ripening Agents: Cytotec @ 50 PO Oxytocin: Induction Group B Beta Strep: positive Antibiotics # of Doses: 3 Antibiotics Time of Last Dose: 0428 Name of Antibiotic Given: Penicillin MEMBRANES Membranes Rupture Method: Artificial Rupture of Membranes: 04/04/2018 05:05 Length of Rupture (hr): 1.15 Amniotic Fluid Color: Clear Amniotic Fluid Amount: Scant Amniotic Fluid Odor: Normal STAGES OF LABOR Stage 1 hr: 5 Stage 1 min: 57 Stage 2 hr: 0 Stage 2 min: 8 Stage 3 hr: 0 Stage 3 min: 3 Total Time in Labor hr: 6 Total Time in Labor min: 8 VAGINAL DELIVERY Episiotomy: None Laceration #1: None Laceration Extension #1: N/A Laceration Repair: Not Applicable Sponge Count Correct: N/A Sharps Count Correct: N/A CSECTION DELIVERY Primary Indication: N/A Secondary Indication: N/A CSection Incidence: N/A Labor: N/A Elective: N/A CSection Incision: N/A BABY A INFORMATION Infant Delivery Date/Time: 04/04/2018 06:14 Method of Delivery: Vaginal Method of Delivery: Vaginal Born in Route : No : N/A Forceps: N/A Vacuum Extraction: N/A Shoulder Dystocia : No PRESENTATION/POSITION BABY A Presentation: Cephalic Cephalic Presentation: Vertex Vertex Position: Right Occipital Anterior Breech Presentation: N/A PLACENTA INFORMATION BABY A Placenta Delivery Time : 04/04/2018 06:17 Placenta Method of Delivery: Spontaneous Placenta Method of Delivery: Spontaneous Placenta Status: Delivered SCORES BABY A Heart Rate 1 min: >100 bpm Resp Effort 1 min: Good Cry Reflex Irritability 1 min: Cough or Sneeze or Pulls Away Muscle Tone 1 min: Active Motion Color 1 min: Body [place], Extremities Blue Resuscitation Effort 1 min: Tactile Stimulation SCORE 1 MIN: 9 Heart Rate 5 min: >100 bpm Resp Effort 5 min: Good Cry Reflex Irritability 5 min: Cough or Sneeze or Pulls Away Muscle Tone 5 min: Active Motion Color 5 min: Body [place], Extremities Blue Resuscitation Effort 5 min: Tactile Stimulation SCORE 5 MIN: 9 INFANT INFORMATION BABY A Gestational Age at Delivery: 39.5 Gestational Status: Full Term- 39- 40.6 Weeks Infant Outcome : Liveborn Condition : Stable Infant Sex: Female Sex: Female IDENTIFICATION BABY A Verification Date/Time: 04/04/2018 06:34 ID Band Number: [id number] Mother's Name Verified: Yes Infant RN Verifying Infant: Wilder Gallagher RN Additional Verifying Personnel: Norma Arellano RN WEIGHT/LENGTH BABY A Birthweight (gm): 3130 Infant Weight (lb): 6 Weight (oz): 14 Infant Length (in): 19.50 Infant Length (cm): 49.53 CORD INFORMATION BABY A No. Cord Vessels: 3 Nuchal Cord : N/A Cord Blood Taken: Yes-For Storage (Mom's Blood type +) Infant Suction: Mouth ASSESSMENT BABY A Complications: None Physical Findings at Delivery: Within Normal Limits Infant Respirations: Appears Normal Skin to Skin: Yes Hydrator/ALS Called : No Care By: Tacho Tolentino RN Transferred To: Remains with Mother BABY B INFORMATION : N/A SIGNATURES Signature: with User ID: [email or web address]
== END 2018-04-06 14:20 | disposition home or self-care (01) | DRG 807 ==
LOC: LR 17:41 → 2S 04-04 09:05
PROVIDERS: ADMIT Obstetrics & Gynecology; ATTEND Obstetrics & Gynecology
PROC: 10E0XZZ Delivery of Products of Conception, External Approach (ICD-10-PCS; principal; 2018-04-03)
PROC: 10907ZC Drainage of Amniotic Fluid, Therapeutic from Products of Conception, Via Natural or Artificial Opening (ICD-10-PCS; 2018-04-03)
PROC: 0U7C7ZZ Dilation of Cervix, Via Natural or Artificial Opening (ICD-10-PCS; 2018-04-03)
PROC: 3E033VJ Introduction of Other Hormone into Peripheral Vein, Percutaneous Approach (ICD-10-PCS; 2018-04-03)
PROC: 4A1HXCZ Monitoring of Products of Conception, Cardiac Rate, External Approach (ICD-10-PCS; 2018-04-03)
DX: O99.824 Streptococcus B carrier state complicating childbirth (principal); O24.429 Gestational diabetes mellitus in childbirth, unspecified control; Z3A.39 39 weeks gestation of pregnancy; Z37.0 Single live birth
CPT/HCPCS: 36415; 80307; 81005; 85025; 85027; 86592; 86850; 86900; 86901; J2370; J2540; J2590; J3010; J3490

== ENCOUNTER 2018-06-23 05:11 | Day surgery (SDC) | payer MEDICAID ==
[2018-06-16 10:39] LABS: APPEARANCE,URINE SLIGHTLY-CLOUDY; BILIRUBIN,URINE NEGATIVE (NEGATIVE); COLOR,URINE YELLOW; GLUCOSE, URINE NEGATIVE (NEGATIVE); KETONES,URINE NEGATIVE (NEGATIVE); LEUKOCYTE ESTERASE,URINE NEGATIVE (NEGATIVE); NITRITE,URINE NEGATIVE (NEGATIVE); PROTEIN,URINE NEGATIVE (NEGATIVE); URINE SPECIFIC GRAVITY 1.014; UROBILINOGEN,URINE NEGATIVE mg/dL (<2.0)
[2018-06-16 10:39] LABS: HEMATOCRIT 39.5 % (36.0-47.0); HEMOGLOBIN 13.3 g/dL (12.0-15.5); MEAN CORPUSCULAR HEMOGLOBIN 27.3 pg (27.0-33.4); MEAN CORPUSCULAR HGB CONC 33.6 g/dL (32.0-36.0); MEAN CORPUSCULAR VOLUME 82 fl (80-97); PLATELET COUNT 214 10^3/uL (150-450); RED BLOOD COUNT 4.85 10^6/uL (3.72-5.28); RED CELL DISTRIBUTION WIDTH 17.7 % (11.5-14.0); WHITE BLOOD COUNT 4.5 10^3/uL (4.0-10.5)
[~2018-06-23 05:11] MED LIST: LACTATED RINGERS 1000 ML IV PRN; LIDOCAINE 0.5% INJ-PF (5 MG/ML) 50 ML SDV SUBCUT PRN
[2018-06-23] MEDS ORDERED: DEXAMETHASONE SOD PHOSPHATE INJ 4 MG/1 ML VIAL ONE (07:04)
[2018-06-23] MEDS ORDERED: MIDAZOLAM 2 MG/2 ML INJ ONE (07:04)
[2018-06-23] MEDS ORDERED: ONDANSETRON HCL INJ/PF 4 MG/2 ML SDV ONE (07:04)
[2018-06-23] MEDS ORDERED: HYDROMORPHONE HCL INJ/PF 2 MG/ML AMPULE ONE (07:04)
[2018-06-23] MEDS ORDERED: EPHEDRINE SULFATE INJ 50 MG/1 ML AMPULE ONE (07:04)
[2018-06-23] MEDS ORDERED: PROPOFOL INJ 200 MG/20 ML VIAL IV ONE (07:05)
[2018-06-23] MEDS ORDERED: PROMETHAZINE HCL INJ 25 MG/1 ML VIAL IV PRN (07:54)
[2018-06-23] MEDS ORDERED: DIPHENHYDRAMINE HCL 50 MG/ML VIAL IV PRN (07:54)
[2018-06-23] MEDS ORDERED: FENTANYL CITRATE INJ/PF 100 MCG/2 ML AMPUL IV PRN ×3 (07:54)
[2018-06-23] MEDS ORDERED: MEPERIDINE HCL/PF INJ 25 MG/1 ML DISP.SYRIN IV PRN (07:54)
[2018-06-23] MEDS: FENTANYL CITRATE INJ/PF 100 MCG/2 ML AMPUL ONE ×2 (08:28→08:33)
--- NOTE | 2018-06-23 08:57 | OPERATIVE REPORT E ---
Operative Report NAME: CLARK SPEARS : 1990 AGE: 27Y DATE OF SURGERY: 06/23/2018 ROOM: PREOPERATIVE DIAGNOSIS: Undesired fertility. POSTOPERATIVE DIAGNOSIS: Undesired fertility. SURGEON: KRISTIAN KERR M.D. ANESTHESIA: Dr. Genao with general and Humberto Foster CRNA with general. FINDINGS: Normal uterus, tubes, and ovaries. COMPLICATIONS: None. ESTIMATED BLOOD LOSS: 15 mL. SPECIMENS REMOVED: None. PROCEDURE: Laparoscopic tubal cauterization. PROCEDURE IN DETAIL: The patient was taken to the operating room and prepared and draped in a normal sterile fashion in the dorsal lithotomy position. Under sterile conditions, in and out cath was performed of approximately 100 mL of clear urine. A sterile speculum was placed in the vagina and the cervix was grasped with a Hulka clamp for uterine manipulation. Speculum was removed and the gloves were changed and attention was turned to the upper portion of the case where an umbilical skin incision was made with the scalpel to accommodate a 5 mm trocar. Under direct visualization, the camera was placed into the peritoneal cavity with the trocar. The abdomen was inflated with approximately 2 L of CO2 gas and the patient was placed in Trendelenburg. Under direct visualization, another 5 mm port was placed in the left lower quadrant. The bowel was swept away with a blunt probe through this port and the blunt probe was removed. The Kleppinger was then introduced and the left fallopian tube was grasped and cauterized approximately 3.5 cm with complete occlusion. This was repeated on the right fallopian tube without any difficulty. Once we felt occlusion was complete on both sides, the camera was removed and the lower trocar was removed. The abdomen was deflated through the umbilical trocar and this trocar was then removed and both incisions were closed with 4-0 Vicryl. The patient tolerated the procedure well. Sponge, lap, and needle counts were correct x2, and the patient was taken to recovery in stable condition. DICTATING PHYSICIAN: KRISTIAN KERR M.D. [id number] PHY#: [id number] ID: [id number] JOB#: [id number] ACCT: [id number] cc:KRISTIAN KERR M.D. >
[2018-06-23] MEDS ORDERED: OXYCODONE-ACETAMINOPHEN 5-325 MG TABLET PO PRN ×2 (09:07)
[2018-06-23] MEDS ORDERED: IBUPROFEN 800 MG TABLET PO PRN (09:08)
[2018-06-23] MEDS ORDERED: IBUPROFEN 800 MG TABLET ONE (09:12)
[2018-06-23] MEDS ORDERED: PROMETHAZINE HCL INJ 25 MG/1 ML VIAL ONE (09:12)
[2018-06-23 10:38] VITALS: BP 119/85
== END 2018-06-23 10:40 | disposition home or self-care (01) ==
LOC: OROUT 05:11
PROVIDERS: ATTEND Obstetrics & Gynecology
DX: Z30.2 Encounter for sterilization (principal); Z79.899 Other long term (current) drug therapy; K21.9 Gastro-esophageal reflux disease without esophagitis
CPT/HCPCS: 36415; 85027; 81005; 81025; 58670; J2250; J3490; J1100; J3010; J1170; J2550; J2405; J2704; 851

== ENCOUNTER 2019-08-02 23:03 | Emergency (ER) | payer SELFPAY ==
[2019-08-03] MEDS ORDERED: NORMAL SALINE 1000 ML 1,000 ML IV ONE ×2 (01:39→06:28)
[2019-08-03] MEDS ORDERED: ONDANSETRON HCL INJ/PF 4 MG/2 ML SDV IV ONE (01:39)
[2019-08-03 03:07] LABS: ABSOLUTE LYMPHOCYTES (AUTO) 0.7 10^3/uL (0.5-4.7); ABSOLUTE MONOCYTES (AUTO) 0.3 10^3/uL (0.1-1.4); ABSOLUTE NEUT (AUTO) 1.4 10^3/uL (1.7-8.2); BASOPHILS % (AUTO) 0.5 % (0-2); HEMATOCRIT 39.8 % (36.0-47.0); HEMOGLOBIN 13.6 g/dL (12.0-15.5); LYMPHOCYTES % (AUTO) 29.7 % (13-45); MEAN CORPUSCULAR HEMOGLOBIN 30.2 pg (27.0-33.4); MEAN CORPUSCULAR HGB CONC 34.2 g/dL (32.0-36.0); MEAN CORPUSCULAR VOLUME 88 fl (80-97); MONOCYTES % (AUTO) 10.7 % (3-13); PLATELET COUNT 133 10^3/uL (150-450); RED BLOOD COUNT 4.51 10^6/uL (3.72-5.28); RED CELL DISTRIBUTION WIDTH 14.5 % (11.5-14.0); SEGMENTED NEUTROPHILS % (AUTO) 59.1 % (42-78); TOTAL CELLS COUNTED % (AUTO) 100 %; WHITE BLOOD COUNT 2.4 10^3/uL (4.0-10.5)
[2019-08-03 03:26] LABS: APPEARANCE,URINE CLOUDY; BILIRUBIN,URINE NEGATIVE (NEGATIVE); COLOR,URINE YELLOW; GLUCOSE, URINE NEGATIVE (NEGATIVE); KETONES,URINE 80 mg/dL (NEGATIVE); LEUKOCYTE ESTERASE,URINE NEGATIVE (NEGATIVE); NITRITE,URINE POSITIVE (NEGATIVE); PROTEIN,URINE 100 mg/dL (NEGATIVE); URINE SPECIFIC GRAVITY 1.025; UROBILINOGEN,URINE NEGATIVE mg/dL (<2.0)
[2019-08-03 03:31] LABS: ALBUMIN 4.1 g/dL (3.5-5.0); ALKALINE PHOSPHATASE 51 U/L (38-126); ANION GAP 11 (5-19); ASPARTATE AMINO TRANSFERASE 25 U/L (14-36); BILIRUBIN,DIRECT 0.2 mg/dL (0.0-0.4); BILIRUBIN,TOTAL 0.2 mg/dL (0.2-1.3); BLOOD UREA NITROGEN 9 mg/dL (7-20); CALCIUM 8.6 mg/dL (8.4-10.2); CARBON DIOXIDE 22 mmol/L (22-30); CHLORIDE 109 mmol/L (98-107); GLUCOSE 88 mg/dL (75-110); POTASSIUM 3.5 mmol/L (3.6-5.0); TOTAL PROTEIN 6.9 g/dL (6.3-8.2)
[2019-08-03] MEDS ORDERED: ONDANSETRON HCL INJ/PF 4 MG/2 ML SDV ONE (04:16)
[2019-08-03] MEDS ORDERED: CEFTRIAXONE 1 GM/D5W RTU 1 GM/50 ML RTUPB IV ONE (06:28)
[2019-08-03] MEDS ORDERED: FENTANYL CITRATE INJ/PF 100 MCG/2 ML AMPUL IV ONE (06:28)
[2019-08-03] MEDS ORDERED: FAMOTIDINE 20 MG TABLET PO ONE (06:29)
[2019-08-03] MEDS ORDERED: PROMETHAZINE HCL 25 MG TABLET PO ONE (06:29)
--- NOTE | 2019-08-03 06:35 | ER Document Report ---
ED GI/ - General Chief Complaint: Nausea/Vomiting Stated Complaint: NAUSEA,VOMITING Time Seen by Provider: 08/03/19 06:26 Notes: Patient is an 28-year-old female that comes emergency department for chief complaint of chills and vomiting for the past 3 days. She states she hurts in her back and in her abdomen generally but not specifically. She states her son was also sick with essentially the same symptoms. She denies dysuria but states she gets frequent UTIs. She denies vaginal discharge. She denies history of kidney stones, she is currently on her menstrual cycle. She has had a tubal ligation, takes no daily medications, denies medical history otherwise. Denies alcohol, recreational drugs. TRAVEL OUTSIDE OF THE [place] IN LAST 30 DAYS: No - Related Data Allergies/Adverse Reactions: strawberry [[place]] Allergy (Severe, Verified 08/03/19 01:29) Hives morphine Adverse Reaction (Severe, Verified 08/03/19 01:29) n and v Past Medical History - General Information source: Patient - Social History Smoking Status: Former Smoker Frequency of alcohol use: None Drug Abuse: None Lives with: Family Family History: Arthritis, Malignancy Patient has suicidal ideation: No Patient has homicidal ideation: No - Past Medical History Cardiac Medical History: Denies: Hx Coronary Artery Disease, Hx Heart Attack, Hx Hypertension Pulmonary Medical History: Denies: Hx Asthma, Hx Bronchitis, Hx COPD, Hx Pneumonia Neurological Medical History: Reports: Hx Migraine. Denies: Hx Cerebrovascular Accident, Hx Seizures Renal/ Medical History: Reports: Hx Kidney Stones. Denies: Hx Peritoneal Dialysis Malignancy Medical History: Reports: Hx Cervical Cancer - Atypical cells with a cone biopsy Musculoskeletal Medical History: Denies Hx Arthritis Past Surgical History: Reports: Hx Gynecologic Surgery - LEEP, cone biopsy, Hx Oral Surgery - wisdom teeth, Hx Orthopedic Surgery - wisdom - Immunizations Immunizations up to date: Yes Hx Diphtheria, Pertussis, Tetanus Vaccination: Yes Hx Pneumococcal Vaccination: 06/28/09 Review of Systems - Review of Systems Constitutional: See HPI EENT: No symptoms reported Cardiovascular: No symptoms reported Respiratory: No symptoms reported Gastrointestinal: See HPI Genitourinary: No symptoms reported Female Genitourinary: See HPI Musculoskeletal: No symptoms reported Skin: No symptoms reported Hematologic/Lymphatic: No symptoms reported Neurological/Psychological: No symptoms reported Physical Exam - Vital signs Vitals: Temp Pulse Resp BP Pulse Ox 98.7 F 96 18 148/90 H 96 08/03/19 01:36 08/03/19 01:36 08/03/19 01:36 08/03/19 01:36 08/03/19 01:36 - Notes Notes: GENERAL: Patient appears tired but she does not appear to be in pain HEAD: Normocephalic, atraumatic. EYES: Pupils equal, round, and reactive to light. Extraocular movements intact. ENT: Oral mucosa very dry with cracked lips, tongue midline. Oropharynx unremarkable. Airway patent. LUNGS: Clear to auscultation bilaterally, no wheezes, rales, or rhonchi. No respiratory distress. HEART: Regular rate and rhythm. No murmur ABDOMEN: Soft, non-tender. Non-distended. Bowel sounds present in all 4 quadrants. GENITOURINARY: Deferred EXTREMITIES: Moves all 4 extremities spontaneously. No edema, normal radial and dorsalis pedis pulses bilaterally. No cyanosis. BACK: No CVA tenderness. No cervical, thoracic, lumbar midline tenderness. No saddle anesthesia, normal distal neurovascular exam. Moves all extremities in full range of motion. NEUROLOGICAL: Alert and oriented x3. Normal speech. Cranial nerves II through XII grossly intact. PSYCH: Normal affect, normal mood. SKIN: Warm, dry, normal turgor. No rashes or lesions noted. Course - Re-evaluation Re-evalutation: Chemistry shows leukopenia and thrombocytopenia suggesting viral illness, patient has been exposed to someone else with the same symptoms. Soft benign abdomen, no CVA tenderness. Chemistry shows borderline potassium. Urine shows blood, positive nitrites. However patient is on her menstrual cycle. She denies history of kidney stones, has no particular flank pain, had no sudden pain, overall presentation does not suggest a kidney stone. I suspect a viral illness with dehydration and secondary developing urinary tract infection. Discussed with patient and these details at length. Patient rehydrated, medicated, treated with Rocephin. Patient tolerated p.o., states she feels much better, appears much improved. She will be discharged with treatment for UTI, symptom management, discussed follow-up and return precautions. Patient states understanding and agreement. Stable at time of discharge. - Vital Signs Vital signs: Temp Pulse Resp BP Pulse Ox 98.6 F 85 15 109/68 98 08/03/19 08:17 02/06/20 08:17 08/03/19 08:17 08/03/19 08:17 08/03/19 08:17 - Laboratory Result Diagrams: 08/03/19 02:56 08/03/19 02:56 Laboratory results interpreted by me: 08/03/19 08/03/19 08/03/19 02:56 02:56 02:56 WBC 2.4 L RDW 14.5 H Plt Count 133 L Absolute Neuts (auto) 1.4 L Potassium 3.5 L Chloride 109 H Urine Protein 100 H Urine Ketones 80 H Urine Blood LARGE H Urine Nitrite POSITIVE H Urine Ascorbic Acid 40 H Discharge - Discharge Clinical Impression: Dehydration, Flank pain Vomiting Qualifiers: Vomiting type: unspecified Vomiting Intractability: non-intractable Nausea presence: with nausea Qualified Code(s): R11.2 - Nausea with vomiting, unspecified Abdominal pain Qualifiers: Abdominal location: generalized Qualified Code(s): R10.84 - Generalized abdominal pain Condition: Stable Disposition: HOME, SELF-CARE Additional Instructions: Your lab shifts indicate a viral illness. This should simply resolve with time. Continue to hydrate, take the nausea medication as prescribed, start with clear fluids and bland diet. Take antibiotics as prescribed for the developing urinary tract infection. Return if you worsen including severe worsening pain, uncontrolled vomiting, spiking fever, or any other concerning or worsening symptoms. Prescriptions: Cephalexin Monohydrate [Keflex 500 mg Capsule] 500 mg PO BID 7 Days #14 capsule Promethazine HCl [Phenergan 25 mg Tablet] 25 mg PO Q6H PRN #15 tablet PRN Reason:
[2019-08-03] MEDS ORDERED: HYDROCODONE/ACETAMINOPHEN 5-325 MG (6 TAB/ER DISP) PO PRN (06:57)
[2019-08-03] MEDS ORDERED: ONDANSETRON ODT 4 MG TAB (6 TAB/ER DISP) PO PRN (06:57)
[2019-08-03 08:20] VITALS: BP 109/68
== END 2019-08-03 08:20 | disposition home or self-care (01) ==
LOC: ER 23:03
DX: R10.84 Generalized abdominal pain (principal); E86.0 Dehydration; R10.9 Unspecified abdominal pain; R11.2 Nausea with vomiting, unspecified; M54.9 Dorsalgia, unspecified; Z87.891 Personal history of nicotine dependence; Z87.442 Personal history of urinary calculi
CPT/HCPCS: 99283; 96361; 96375; 96365; 96366; 36415; 87086; 85025; 87088; 80053; 81001; 87186; J3010; J2405; J7030; J0696

== ENCOUNTER 2019-09-17 10:42 | Emergency (ER) | payer SELFPAY ==
[2019-09-17 10:47] VITALS: BP 118/76
--- NOTE | 2019-09-17 11:04 | ER Document Report ---
ED Medical Screen (RME) - General Mode of Arrival: Wheelchair Information source: Patient TRAVEL OUTSIDE OF THE [place] IN LAST 30 DAYS: No - General Chief Complaint: Low Back Pain Stated Complaint: LOWER BACK PAIN Time Seen by Provider: 09/17/19 10:58 Notes: 29-year-old female presents to ED for complaint of a very sharp pain in her lower back started yesterday when she tried to bend over. She states she is never had pain like this before. She states she did not fall she did not injure her back she was just bending over. She states she has not been able to walk since then due to the pain. She denies any loss of control of bowel bladder no saddle anesthesia, she states the sensation is less to her legs than it used to be and they are tingling. She states her last menstrual cycle was about 3 weeks ago. We will get blood and urine and then we will get x-rays and she will follow-up with another provider. I have greeted and performed a rapid initial assessment of this patient. A comprehensive ED assessment and evaluation of the patient, analysis of test results and completion of medical decision making process will be conducted by an additional ED providers. (PEACE العلي) - Related Data Allergies/Adverse Reactions: strawberry [[place]] Allergy (Severe, Verified 08/03/19 01:29) Hives morphine Adverse Reaction (Severe, Verified 08/03/19 01:29) n and v Past Medical History - General Information source: Patient - Social History Cigarette use (# per day): No Chew tobacco use (# tins/day): No Frequency of alcohol use: Rare Drug Abuse: None Lives with: Family - Past Medical History Cardiac Medical History: Reports: None Pulmonary Medical History: Reports: None EENT Medical History: Reports: None Neurological Medical History: Reports: Hx Migraine Renal/ Medical History: Reports: Hx Kidney Stones Malignancy Medical History: Reports: Hx Cervical Cancer - Atypical cells with a cone biopsy and a LEEP GI Medical History: Reports: None Musculoskeltal Medical History: Reports Hx Musculoskeletal Deformity, Reports Hx Musculoskeletal Trauma Skin Medical History: Reports None Psychiatric Medical History: Reports: Hx Depression - depression Traumatic Medical History: Reports: Hx Fractures - Ankles right arm Infectious Medical History: Reports: None Past Surgical History: Reports: Hx Gynecologic Surgery - LEEP, cone biopsy, Hx Oral Surgery - wisdom teeth, Hx Tubal Ligation - Immunizations Immunizations up to date: Yes Hx Diphtheria, Pertussis, Tetanus Vaccination: Yes Physical Exam - Vital signs Vitals: Temp Pulse Resp BP Pulse Ox 97.4 F 65 20 118/76 99 09/17/19 10:46 09/17/19 10:46 09/17/19 10:46 09/17/19 10:46 09/17/19 10:46 Course - Vital Signs Vital signs: Temp Pulse Resp BP Pulse Ox 97.4 F 65 20 118/76 99 09/17/19 10:46 09/17/19 10:46 09/17/19 10:46 09/17/19 10:46 09/17/19 10:46
[2019-09-17] MEDS ORDERED: DIAZEPAM 5 MG TABLET PO ONE (11:15)
[2019-09-17] MEDS ORDERED: KETOROLAC TROMETHAMINE 60 MG/2 ML SDV IM ONE (11:15)
--- NOTE | 2019-09-17 11:23 | ER Document Report ---
ED General - General Chief Complaint: Low Back Pain Stated Complaint: LOWER BACK PAIN Time Seen by Provider: 09/17/19 10:58 Mode of Arrival: Wheelchair Notes: 29 year old female with FDLMP about 3 weeks presents with sharp lower back pain since bending over yesterday. No trauma. "I heard a pop." Sharp lower back pain more on the left that radiates down left leg. No rash or travel or recent injury. She denies previous history of back pain/ injury, but wonders to me about uti as she is prone to "kidney problems." No weakness, fever or bowel or bladder difficulty. Pain is worse with ambulation. No relief with advil yesterday. TRAVEL OUTSIDE OF THE [place] IN LAST 30 DAYS: No - HPI Onset/Duration: Gradual Quality of pain: Achy Severity: Moderate Associated symptoms: None Exacerbated by: Denies Relieved by: Denies - Related Data Allergies/Adverse Reactions: strawberry [[place]] Allergy (Severe, Verified 08/03/19 01:29) Hives morphine Adverse Reaction (Severe, Verified 08/03/19 01:29) n and v Past Medical History - General Information source: Patient - Social History Smoking Status: Never Smoker Cigarette use (# per day): No Chew tobacco use (# tins/day): No Frequency of alcohol use: Rare Drug Abuse: None Lives with: Family Family History: Arthritis, Malignancy Patient has suicidal ideation: No Patient has homicidal ideation: No - Past Medical History Cardiac Medical History: Reports: None Denies: Hx Heart Attack, Hx Hypertension Pulmonary Medical History: Reports: None Denies: Hx Asthma, Hx Bronchitis, Hx COPD, Hx Pneumonia EENT Medical History: Reports: None Neurological Medical History: Reports: Hx Migraine. Denies: Hx Seizures Renal/ Medical History: Reports: Hx Kidney Stones Malignancy Medical History: Reports: Hx Cervical Cancer - Atypical cells with a cone biopsy and a LEEP GI Medical History: Reports: None Musculoskeletal Medical History: Denies Hx Arthritis, Reports Hx Musculoskeletal Deformity, Reports Hx Musculoskeletal Trauma Skin Medical History: Reports None Psychiatric Medical History: Reports: Hx Depression - depression Traumatic Medical History: Reports: Hx Fractures - Ankles right arm Infectious Medical History: Reports: None Past Surgical History: Reports: Hx Gynecologic Surgery - LEEP, cone biopsy, Hx Oral Surgery - wisdom teeth, Hx Orthopedic Surgery - wisdom, Hx Tubal Ligation - Immunizations Immunizations up to date: Yes Hx Diphtheria, Pertussis, Tetanus Vaccination: Yes Hx Pneumococcal Vaccination: 06/28/09 Review of Systems - Review of Systems Constitutional: No symptoms reported EENT: No symptoms reported Cardiovascular: No symptoms reported Respiratory: No symptoms reported Gastrointestinal: No symptoms reported Genitourinary: No symptoms reported Female Genitourinary: No symptoms reported Musculoskeletal: See HPI, Back pain Skin: No symptoms reported Hematologic/Lymphatic: No symptoms reported Neurological/Psychological: No symptoms reported Physical Exam - Vital signs Vitals: Temp Pulse Resp BP Pulse Ox 97.4 F 65 20 118/76 99 09/17/19 10:46 09/17/19 10:46 09/17/19 10:46 09/17/19 10:46 09/17/19 10:46 Interpretation: Normal - General General appearance: Appears well, Alert - HEENT Head: Normocephalic, Atraumatic Eyes: Normal Pupils: PERRL - Respiratory Respiratory status: No respiratory distress Chest status: Nontender Breath sounds: Normal Chest palpation: Normal - Cardiovascular Rhythm: Regular Heart sounds: Normal auscultation Murmur: No - Abdominal Inspection: Normal Distension: No distension Bowel sounds: Normal Tenderness: Nontender Organomegaly: No organomegaly - Back Back: Normal, Tender - ttp low back paraspinaly and left si region. - Extremities General upper extremity: Normal inspection, Nontender, Normal color, Normal ROM, Normal temperature General lower extremity: Normal inspection, Nontender, Normal color, Normal ROM, Normal temperature, Normal weight bearing. No: Juanpablo's sign - Neurological Neuro grossly intact: Yes Cognition: Normal Orientation: AAOx4 [place] Coma Scale Eye Opening: Spontaneous [place] Coma Scale Verbal: Oriented [place] Coma Scale Motor: Obeys Commands [place] Coma Scale Total: 15 Speech: Normal Sensory: Normal - Psychological Associated symptoms: Normal affect, Normal mood - Skin Skin Temperature: Warm Skin Moisture: Dry Skin Color: Normal Course - Re-evaluation Re-evalutation: 09/17/19 11:22 MDM 29 year old female arrives with low back pain. Sharp and sciatic in origin. She has no history of the same and no high risk - dm, fever, ivda. We discussed conservative treatment, rest, ice and alternate ice and heat and she expressed understanding. - Vital Signs Vital signs: Temp Pulse Resp BP Pulse Ox 97.4 F 65 20 118/76 99 09/17/19 10:46 09/17/19 10:46 09/17/19 10:46 09/17/19 10:46 09/17/19 10:46 - Laboratory Laboratory results interpreted by me: 09/17/19 11:04 Ur Leukocyte Esterase MODERATE H - Diagnostic Test Radiology reviewed: Image reviewed, Reports reviewed Discharge - Discharge Clinical Impression: Sciatica of left side, Cystitis Condition: Good Disposition: HOME, SELF-CARE Instructions: Ice Packs ([facility]), Low Back Pain ([facility]), Muscle Strain ([facility]), Pain Medication Injection ([facility]) Additional Instructions: Rest, ice and alternate ice and heat to your back. See your doctor or a ref erral doctor in follow up. Please return here for any problems or any concerns. Prescriptions: Fluconazole [Diflucan] 100 mg PO DAILY #2 tablet Cephalexin Monohydrate [Keflex 500 mg Capsule] 500 mg PO TID #15 capsule Ibuprofen [Motrin 600 mg Tablet] 600 mg PO TID #30 tablet Diazepam [Valium 5 mg Tablet] 5 mg PO TID #15 tablet
[2019-09-17 11:36] LABS: APPEARANCE,URINE CLOUDY; BILIRUBIN,URINE NEGATIVE (NEGATIVE); COLOR,URINE YELLOW; GLUCOSE, URINE NEGATIVE (NEGATIVE); KETONES,URINE NEGATIVE (NEGATIVE); LEUKOCYTE ESTERASE,URINE MODERATE (NEGATIVE); NITRITE,URINE NEGATIVE (NEGATIVE); PROTEIN,URINE NEGATIVE (NEGATIVE); URINE SPECIFIC GRAVITY 1.017; UROBILINOGEN,URINE NEGATIVE mg/dL (<2.0)
--- NOTE | 2019-09-17 12:13 | RADIOLOGY REPORT (SQ) ---
EXAM DESCRIPTION: L SPINE WHOLE COMPLETED DATE/TIME: 09/17/2019 10:52 am REASON FOR STUDY: Tried to bend over and collapsed yesterday COMPARISON: None. NUMBER OF VIEWS: Five views including obliques. TECHNIQUE: AP, lateral, oblique, and sacral radiographic images acquired of the lumbar spine. LIMITATIONS: None. FINDINGS: MINERALIZATION: Normal. SEGMENTATION: Normal. No transitional anatomy. ALIGNMENT: Normal. VERTEBRAE: Maintained height. No fracture or worrisome bone lesion. DISCS: Preserved height. No significant osteophytes or end plate irregularity. POSTERIOR ELEMENTS: Pedicles and facets are intact. No pars defect or posterior arch defects. HARDWARE: None in the spine. PARASPINAL SOFT TISSUES: Normal. PELVIS: Intact as visualized. No fractures or worrisome bone lesions. SI joints intact. OTHER: No other significant finding. IMPRESSION: No radiographic abnormality of the lumbar spine. TECHNICAL DOCUMENTATION: JOB ID: [id number] [employer]- All Rights Reserved Reading location - IP/workstation name: [email or web address]
== END 2019-09-17 12:26 | disposition home or self-care (01) ==
LOC: ER 10:42
DX: M54.42 Lumbago with sciatica, left side (principal); N30.90 Cystitis, unspecified without hematuria; Z91.018 Allergy to other foods
CPT/HCPCS: 99283; 96372; 81025; 81001; 72110; J1885

== ENCOUNTER 2020-07-23 09:01 | Emergency (ER) | payer OTHER ==
[2020-07-23] MEDS ORDERED: NORMAL SALINE 1000 ML 1,000 ML IV ONE (09:22)
[2020-07-23] MEDS ORDERED: ONDANSETRON HCL INJ/PF 4 MG/2 ML SDV IV ONE (09:22)
--- NOTE | 2020-07-23 09:49 | ER Document Report ---
ED Flu Like - General Chief Complaint: Flu Symptoms Stated Complaint: NAUSEA VOMITING DIARRHEA Time Seen by Provider: 07/23/20 09:29 Notes: CHIEF COMPLAINT: Nausea vomiting left lower quadrant pain for 1 day HPI: 29-year-old female presenting for nausea vomiting and diarrhea over the last 24 hours multiple episodes of both. She also complains of some left lower quadrant pain. States she had a fever up to 101 yesterday. No dysuria. Letty ent has not had a cough or shortness of breath ROS: See HPI - all other systems were reviewed and are otherwise negative Constitutional: Positive fever Eyes: no drainage, no blurred vision ENT: no runny nose, no sore throat Cardiovascular: no chest pain Resp: no SOB, no cough GI: Positive vomiting, positive diarrhea, positive abdominal pain : no dysuria Integumentary: no rash Allergy: no hives Musculoskeletal: no extremity pain or swelling Neurological: no numbness/tingling, no weakness MEDICATIONS: I agree with the patient medications as charted by the RN. ALLERGIES: I agree with the allergies as charted by the RN. PAST MEDICAL HISTORY/PAST SURGICAL HISTORY: Reviewed and agree as charted by RN. SOCIAL HISTORY: Reviewed and agree as charted by RN. FAMILY HISTORY: No significant familial comorbid conditions directly related to patient complaint EXAM: Reviewed vital signs as charted by RN. CONSTITUTIONAL: Alert and oriented and responds appropriately to questions. Slightly ill-appearing; well-nourished HEAD: Normocephalic; atraumatic EYES: PERRL; Conjunctivae clear, sclerae non-icteric ENT: normal nose; no rhinorrhea; moist mucous membranes; pharynx without lesions noted, no uvula edema or deviation, no tonsillar hypertrophy, phonation normal NECK: Supple without meningismus; non-tender; no cervical lymphadenopathy, no masses CARD: RRR; no murmurs, no clicks, no rubs, no gallops; symmetric distal pulses RESP: Normal chest excursion without splinting or tachypnea; breath sounds clear and equal bilaterally; no wheezes, no rhonchi, no rales, pulse oximetry 97% on room air not hypoxic ABD/GI: Normal bowel sounds; non-distended; soft, mild tenderness in the left lower quadrant on palpation, no rebound, no guarding; no palpable organomegaly or masses. BACK: The back appears normal and is non-tender to palpation, there is no CVA tenderness EXT: Normal ROM in all joints; non-tender to palpation; no cyanosis, no effusions, no edema SKIN: Normal color for age and race; warm; dry; good turgor; no acute lesions noted NEURO: Moves all extremities equally; Motor and sensory function intact PSYCH: The patient's mood and manner are appropriate. Grooming and personal hygiene are appropriate. MDM: 29-year-old female presenting with nausea vomiting diarrhea over the last 24 hours with a subjective fever at home. Afebrile here not significantly tachycardic has mild left lower quadrant pain unlikely that this is an abscess given the short timeframe. Will obtain baseline screening labs Covid test, plan for CT of the abdomen given the left lower quadrant pain to ensure patient does not have diverticulitis or other surgical or infectious process The patient was evaluated during the global COVID-19 pandemic and that diagnosis was suspected/considered upon their initial presentation. Their evaluation, treatment and testing was consistent with current guidelines for patients who present with complaints or symptoms that may be related to COVID-19 TRAVEL OUTSIDE OF THE [place] IN LAST 30 DAYS: No - Related Data Allergies/Adverse Reactions: strawberry [[place]] Allergy (Severe, Verified 07/23/20 09:20) Hives morphine Adverse Reaction (Severe, Verified 07/23/20 09:20) n and v Past Medical History - Social History Smoking Status: Never Smoker Family History: Arthritis, Malignancy - Past Medical History Cardiac Medical History: Denies: Hx Heart Attack, Hx Hypertension Pulmonary Medical History: Denies: Hx Asthma, Hx Bronchitis, Hx COPD, Hx Pneumonia Neurological Medical History: Reports: Hx Migraine. Denies: Hx Seizures Renal/ Medical History: Reports: Hx Kidney Stones Malignancy Medical History: Reports: Hx Cervical Cancer - Atypical cells with a cone biopsy and a LEEP Musculoskeletal Medical History: Denies Hx Arthritis, Reports Hx Musculoskeletal Deformity, Reports Hx Musculoskeletal Trauma Psychiatric Medical History: Reports: Hx Depression - depression Traumatic Medical History: Reports: Hx Fractures - Ankles right arm Past Surgical History: Reports: Hx Gynecologic Surgery - LEEP, cone biopsy, Hx Oral Surgery - wisdom teeth, Hx Orthopedic Surgery - wisdom, Hx Tubal Ligation - Immunizations Immunizations up to date: Yes Hx Diphtheria, Pertussis, Tetanus Vaccination: Yes Hx Pneumococcal Vaccination: 01/01/10 Physical Exam - Vital signs Vitals: Temp Pulse Resp BP Pulse Ox 98.1 F 74 17 135/98 H 99 07/23/20 09:07 07/23/20 09:07 07/23/20 09:07 07/23/20 09:07 07/23/20 09:07 Course - Re-evaluation Re-evalutation: 07/23/20 12:[address] imaging and lab work do not show acute actionable abnormalities. This is likely a viral etiology patient is a person under investigation for COVID-19 at this time. Self quarantine at home pending test results symptomatic treatment Bentyl Zofran - Vital Signs Vital signs: Temp Pulse Resp BP Pulse Ox 98.1 F 74 17 135/98 H 99 07/23/20 09:07 07/23/20 09:07 07/23/20 09:07 07/23/20 09:07 07/23/20 09:07 - Laboratory Results Result Diagrams: 07/23/20 09:39 07/23/20 09:22 Laboratory Results Interpreted: 07/23/20 07/23/20 07/23/20 09:22 09:39 11:46 Hgb 16.0 H RDW 14.6 H Chloride 108 H Carbon Dioxide 20 L Urine Ketones 80 H Ur Leukocyte Esterase SMALL H Critical Laboratory Results Reviewed: No Critical Results - Radiology Results Critical Radiology Results Reviewed: No Critical Results Discharge - Discharge Clinical Impression: Nausea vomiting and diarrhea, Abdominal pain, left lower quadrant, Person under investigation for COVID-19 Condition: Stable Disposition: HOME, SELF-CARE Additional Instructions: Take the Bentyl for abdominal pain and spasm take Zofran for nausea vomiting. Hydrate well at home. Your lab work and imaging studies today did not show acute emergent abnormalities. You are considered a person under investigation for COVID-19 at this time so quarantine at home pending your test results, these may take 2 to 5 days and you should receive notification from the hospital about your results. Return for worsened condition or inability to keep fluids down Prescriptions: Dicyclomine HCl [Bentyl 20 mg Tablet] 20 mg PO Q6HP PRN #15 tablet PRN Reason: Ondansetron [Zofran Odt 4 mg Tablet] 1 - 2 tab PO Q4H PRN #15 tab.rapdis PRN Reason: For Nausea/Vomiting Referrals: TANISHA MILLS MD [COMMUNITY BASED STAFF] - Follow up as needed
[2020-07-23 09:55] LABS: ABSOLUTE EOSINOPHILS # (AUTO) 0.1 10^3/uL (0.0-0.6); ABSOLUTE LYMPHOCYTES (AUTO) 1.6 10^3/uL (0.5-4.7); ABSOLUTE MONOCYTES (AUTO) 0.3 10^3/uL (0.1-1.4); ABSOLUTE NEUT (AUTO) 4.4 10^3/uL (1.7-8.2); BASOPHILS % (AUTO) 0.6 % (0-2); HEMATOCRIT 46.8 % (36.0-47.0); LYMPHOCYTES % (AUTO) 25.1 % (13-45); MEAN CORPUSCULAR HEMOGLOBIN 30.7 pg (27.0-33.4); MEAN CORPUSCULAR HGB CONC 34.2 g/dL (32.0-36.0); MEAN CORPUSCULAR VOLUME 90 fl (80-97); PLATELET COUNT 180 10^3/uL (150-450); RED BLOOD COUNT 5.23 10^6/uL (3.72-5.28); RED CELL DISTRIBUTION WIDTH 14.6 % (11.5-14.0); SEGMENTED NEUTROPHILS % (AUTO) 68.3 % (42-78); TOTAL CELLS COUNTED % (AUTO) 100 %; WHITE BLOOD COUNT 6.4 10^3/uL (4.0-10.5)
--- NOTE | 2020-07-23 10:51 | RADIOLOGY REPORT (SQ) ---
EXAM DESCRIPTION: CT ABD/PELVIS WITH IV ONLY IMAGES COMPLETED DATE/TIME: 07/23/2020 10:35 am REASON FOR STUDY: LLQ pain COMPARISON: None. TECHNIQUE: CT scan of the abdomen and pelvis performed using helical scanning technique with dynamic intravenous contrast injection. No oral contrast. Images reviewed with lung, soft tissue, and bone windows. Reconstructed coronal and sagittal MPR images reviewed. Delayed images for evaluation of the urinary system also acquired. All images stored on PACS. All CT scanners at this facility use dose modulation, iterative reconstruction, and/or weight based d osing when appropriate to reduce radiation dose to as low as reasonably achievable (ALARA). [facility]: Dose Right [facility]: CareDose [facility]: Dose Right [facility]: Teradose 4D [facility]: AchieveMint CONTRAST TYPE AND DOSE: contrast/concentration: Isovue 350.00 mmol/ml; Total Contrast Delivered: 74. 0 ml; Total Saline Delivered: 65.0 ml RENAL FUNCTION: None required. The patient is less than 50 years old. RADIATION DOSE: CT Rad equipment meets quality standard of care and radiation dose reduction techniq ues were employed. CTDIvol: 5.5 - 7.3 mGy. DLP: 735 mGy-cm.. LIMITATIONS: None. FINDINGS: LOWER CHEST: No significant findings. No nodules or infiltrates. LIVER: Normal size. No masses. No dilated ducts. SPLEEN: Normal size. No focal lesions. PANCREAS: No masses. No significant calcifications. No adjacent inflammation or peripancreatic fluid collections. Pancreatic duct not dilated. GALLBLADDER: No identified stones by CT criteria. No inflammatory changes to suggest cholecystitis. ADRENAL GLANDS: No significant masses or asymmetry. RIGHT KIDNEY AND URETER: No solid masses. No significant calcifications. No hydronephrosis or hyd roureter. LEFT KIDNEY AND URETER: No solid masses. No significant calcifications. No hydronephrosis or hydr oureter. AORTA AND VESSELS: No aneurysm. No dissection. Renal arteries, SMA, celiac without stenosis. RETROPERITONEUM: No retroperitoneal adenopathy, hemorrhage or masses. BOWEL AND PERITONEAL CAVITY: No masses or inflammatory changes. No free fluid or peritoneal masses. APPENDIX: Normal. PELVIS: No mass. No free fluid. Normal bladder. ABDOMINAL WALL: No masses. No hernias. BONES: No significant or acute findings. OTHER: No other significant finding. IMPRESSION: NO SIGNIFICANT OR ACUTE FINDING IN THE ABDOMEN OR PELVIS ON CT SCAN WITH IV CONTRAST. TECHNICAL DOCUMENTATION: JOB ID: [id number] Quality ID # [id number]: Final reports with documentation of one or more dose reduction techniques (e.g., Au tomated exposure control, adjustment of the mA and/or kV according to patient size, use of iterative reconstruction technique) 2010 [employer] [facility]- All Rights Reserved Reading location - IP/workstation name: [email or web address]
[2020-07-23 11:28] LABS: ALBUMIN 4.7 g/dL (3.5-5.0); ALKALINE PHOSPHATASE 63 U/L (38-126); ANION GAP 14 (5-19); ASPARTATE AMINO TRANSFERASE 22 U/L (14-36); BILIRUBIN,DIRECT 0.3 mg/dL (0.0-0.4); BILIRUBIN,TOTAL 0.7 mg/dL (0.2-1.3); BLOOD UREA NITROGEN 14 mg/dL (7-20); CALCIUM 9.9 mg/dL (8.4-10.2); CARBON DIOXIDE 20 mmol/L (22-30); CHLORIDE 108 mmol/L (98-107); GLUCOSE 87 mg/dL (75-110); POTASSIUM 4.1 mmol/L (3.6-5.0); TOTAL PROTEIN 7.6 g/dL (6.3-8.2)
[2020-07-23 12:11] LABS: APPEARANCE,URINE SLIGHTLY-CLOUDY; BILIRUBIN,URINE NEGATIVE (NEGATIVE); COLOR,URINE YELLOW; GLUCOSE, URINE NEGATIVE (NEGATIVE); KETONES,URINE 80 mg/dL (NEGATIVE); LEUKOCYTE ESTERASE,URINE SMALL (NEGATIVE); NITRITE,URINE NEGATIVE (NEGATIVE); PROTEIN,URINE NEGATIVE (NEGATIVE); UROBILINOGEN,URINE NEGATIVE mg/dL (<2.0)
[2020-07-23 12:12] LABS: URINE SPECIFIC GRAVITY > 1.060
[2020-07-23 13:25] VITALS: BP 132/88
== END 2020-07-23 13:25 | disposition home or self-care (01) ==
LOC: ER 09:01
DX: R11.2 Nausea with vomiting, unspecified (principal); R10.32 Left lower quadrant pain; R10.814 Left lower quadrant abdominal tenderness; R19.7 Diarrhea, unspecified; Z87.442 Personal history of urinary calculi; Z98.51 Tubal ligation status; Z91.018 Allergy to other foods; Z20.822 Contact with and (suspected) exposure to COVID-19
CPT/HCPCS: 99285; 96361; 96374; 36415; 83690; 85025; 87635; 80053; 81001; 74177; J2405; J7030; C9803